=== PATIENT | female | born 2000 | race Two or more races ===

== ENCOUNTER 2020-06-18 17:37 | Emergency (ER) | payer MEDICAID, SELFPAY ==
--- NOTE | ~2020-06-18 | US_ITS ---
EXAMINATION: ULTRASOUND PELVIC TRANSABDOMINAL/TRANSVAGINAL WITH DOPPLER CLINICAL INFORMATION: Right lower quadrant pain. COMPARISON: None TECHNIQUE: Multiple 2-D grayscale and Doppler transabdominal/transpelvic ultrasound images were obtained. FINDINGS: Uterus: Anteverted/retroflexed measuring 9.8 x 5.3 x 5.8 cm with a volume of 158 mL. An echogenic IUD is seen extending to the level the fundus without significant abnormality. Minimal anechoic fluid is seen. The fundus. The endometrial stripe collectively measures up to 0.8 cm. Right ovary: 6.3 x 4.6 x 5.5 cm. A dominant anechoic cyst measures 5.4 x 4.0 x 4.2 cm. Color Doppler interrogation showed no internal vascular flow. Duplex Doppler interrogation of the ovary is normal. Left ovary: 3.2 x 1.9 x 2.1 cm with a volume of 7.0 cm. Small follicles are seen. Duplex Doppler interrogation showed normal vascular flow. US/US pelvic complete IMPRESSION: 1. Anteverted/retroflexed uterus with IUD in place. No significant abnormality. Minimal anechoic fluid within the endometrium demonstrates benign features and is likely physiologic. 2. Right ovarian cyst demonstrates benign features and is likely physiologic. If right lower quadrant pain persists or worsens, short-term repeat transvaginal pelvic ultrasound is recommended as clinically indicated to assess for change.
--- NOTE | ~2020-06-18 | US_ITS ---
EXAMINATION: ULTRASOUND PELVIC TRANSABDOMINAL/TRANSVAGINAL WITH DOPPLER CLINICAL INFORMATION: Right lower quadrant pain. COMPARISON: None TECHNIQUE: Multiple 2-D grayscale and Doppler transabdominal/transpelvic ultrasound images were obtained. FINDINGS: Uterus: Anteverted/retroflexed measuring 9.8 x 5.3 x 5.8 cm with a volume of 158 mL. An echogenic IUD is seen extending to the level the fundus without significant abnormality. Minimal anechoic fluid is seen. The fundus. The endometrial stripe collectively measures up to 0.8 cm. Right ovary: 6.3 x 4.6 x 5.5 cm. A dominant anechoic cyst measures 5.4 x 4.0 x 4.2 cm. Color Doppler interrogation showed no internal vascular flow. Duplex Doppler interrogation of the ovary is normal. Left ovary: 3.2 x 1.9 x 2.1 cm with a volume of 7.0 cm. Small follicles are seen. Duplex Doppler interrogation showed normal vascular flow. US/US transvaginal IMPRESSION: 1. Anteverted/retroflexed uterus with IUD in place. No significant abnormality. Minimal anechoic fluid within the endometrium demonstrates benign features and is likely physiologic. 2. Right ovarian cyst demonstrates benign features and is likely physiologic. If right lower quadrant pain persists or worsens, short-term repeat transvaginal pelvic ultrasound is recommended as clinically indicated to assess for change.
--- NOTE | ~2020-06-18 | US_ITS ---
EXAMINATION: ULTRASOUND PELVIC TRANSABDOMINAL/TRANSVAGINAL WITH DOPPLER CLINICAL INFORMATION: Right lower quadrant pain. COMPARISON: None TECHNIQUE: Multiple 2-D grayscale and Doppler transabdominal/transpelvic ultrasound images were obtained. FINDINGS: Uterus: Anteverted/retroflexed measuring 9.8 x 5.3 x 5.8 cm with a volume of 158 mL. An echogenic IUD is seen extending to the level the fundus without significant abnormality. Minimal anechoic fluid is seen. The fundus. The endometrial stripe collectively measures up to 0.8 cm. Right ovary: 6.3 x 4.6 x 5.5 cm. A dominant anechoic cyst measures 5.4 x 4.0 x 4.2 cm. Color Doppler interrogation showed no internal vascular flow. Duplex Doppler interrogation of the ovary is normal. Left ovary: 3.2 x 1.9 x 2.1 cm with a volume of 7.0 cm. Small follicles are seen. Duplex Doppler interrogation showed normal vascular flow. US/US pelvic ovarian doppler IMPRESSION: 1. Anteverted/retroflexed uterus with IUD in place. No significant abnormality. Minimal anechoic fluid within the endometrium demonstrates benign features and is likely physiologic. 2. Right ovarian cyst demonstrates benign features and is likely physiologic. If right lower quadrant pain persists or worsens, short-term repeat transvaginal pelvic ultrasound is recommended as clinically indicated to assess for change.
[2020-06-18 17:54] VITALS: BP 122/67; PULSE 62; RESP 16; TEMP 36.3; O2SAT 99; BMI 23.2
--- NOTE | 2020-06-18 19:50 | ED_ITS ---
HPI - Abdominal Pain General Chief Complaint: Abdominal Pain Stated Complaint: Abdominal pain Time Seen by Provider: 06/18/20 19:41 Source: patient Mode of arrival: ambulatory Limitations: no limitations History of Present Illness HPI narrative: Patient comes emergency room complaining of right lower quadrant pain. Patient states it started 3 weeks ago. Yesterday she went to see her OBGYN, states that her engineering design supervisor said there was some inflammation and ordered an ultrasound. Patient states she could not tolerate the pain today. Patient states a few years ago she had her appendix taken out. MD elicited complaint: abdominal pain Related Data Allergies Allergy/AdvReac Type Severity Reaction Status Date / Time animal dander [ANIMAL DANDER] Allergy Unknown SNEEZING Unverified 01/23/20 17:33 SEASONAL ALLERGIES Allergy Unknown SNEEZING Uncoded 01/23/20 17:33 Review of Systems Review of Systems Constitutional : No Weight loss, No Fever, No Chills, No Night Sweats, No Fatigue, No Malaise ENT/Mouth : No Hearing loss, No Ear Pain, No Nasal Congestion, No Sinus Pain, No Hoarseness, No sore throat, No Rhinorrhea, No Swallowing Difficulty Eyes: No Eye Pain, No Swelling, No Redness, No Foreign Body, No Discharge, No Vision Changes Cardiovascular : No Chest Pain, No SOB, No Dyspnea on Exertion, No Orthopnea, No Edema, No Palpitations Respiratory : No Cough, No Sputum, No Wheezing, No Smoke Exposure, No Dyspnea Gastrointestinal : 1 episode of vomiting today, No Diarrhea, No Constipation, complaining of 3 weeks of right lower quadrant pain, No Hematochezia, No Melena Genitourinary : no irregular bleeding, No Dysuria, No Urinary Frequency, No Hematuria, No Urinary Incontinence, No Urgency, No Flank Pain, No Urinary Flow Changes, No Hesitancy Musculoskeletal : No joint pain, No Myalgias, No Joint Swelling Skin : No Skin Lesions, No rash Neuro : No Weakness, No Numbness, No Paresthesias, No Loss of Consciousness, No Dizziness, No Headache Psych : No Anxiety/Panic, No Depression, No SI/HI/AH/VH, No Social Issues, Heme/Lymph: No Bruising, No Bleeding,No Lymphadenopathy Endocrine : No Polyuria, No Polydipsia, No Temperature Intolerance Physical Exam Vital Signs: Vital Signs: Last Vital Signs Temp 97.6 F 06/18/20 21:38 Pulse 66 06/18/20 21:38 Resp 16 06/18/20 21:38 BP 106/56 L 06/18/20 21:38 Pulse Ox 100 06/18/20 21:38 Body Mass Index 23.2 Appearance: Alert. Oriented X3. No acute distress. Well-appearing Eyes: Pupils equal, round and reactive to light. ENT: Pharynx normal. Neck: Normal inspection. Neck supple. No lymph nodes noted. No crepitus CVS: Normal heart rate and rhythm. Pulses normal. Normal S1 and S2 Respiratory: No respiratory distress. Breath sounds normal. No Wheezing. No rales Abdomen: Soft , [id number] tenderness to deep palpation over the right lower quadrant. No rigidity. No distention. Skin: Skin warm and dry. Normal skin color. Normal skin turgor. Extremities: No lower extremity edema. No lower extremity edema. No Lacerations. No Rash Neuro: Oriented X 3. No motor deficit. No sensory deficit. Moving all extermities. No slurred speech. Course Course Course Narrative: I discussed the ultrasound and labs with the patient, patient does have a right ovarian cyst. Patient instructed to follow-up with her OBGYN. At this time, patient is well appearing, talking on her phone. MDM - Abdominal Pain Lab Data Result diagrams: 06/18/20 20:07 06/18/20 20:07 Labs: Lab Results 06/18/20 06/18/20 06/18/20 Range/Units 20:07 20:07 20:15 WBC 6.9 (4.8-10.8) X10*3/uL RBC 3.77 L (4.20-5.50) X10*6/uL Hgb 11.9 L (12.0-16.0) g/dl Hct 35.4 L (37-47) % MCV 93.9 (80-98) fL MCH 31.6 (27.0-33.0) pg MCHC 33.6 (31.0-35.0) g/dl RDW 11.2 (11.0-16.0) % Plt Count 169 (160-400) X10*3/uL MPV 11.0 (9.4-12.3) fL Immature Gran % (Auto) 0.3 (0.0-0.4) % Neut % (Auto) 51.3 (45-73) % Lymph % (Auto) 39.3 (20-40) % [place] % (Auto) 7.5 (2-11) % Eos % (Auto) 1.3 (0-4) % Baso % (Auto) 0.3 (0-2) % Lymph # (Auto) 2.7 (1.2-4.9) X10*3/uL [place] # (Auto) 0.5 (0.1-1.2) X10*3/uL Eos # (Auto) 0.1 (0.0-0.4) X10*3/uL Baso # (Auto) 0.0 (0.0-0.2) X10*3/uL Abs Immat Gran (auto) 0.02 (0.00-0.03) X10*3/uL Absolute Neuts (auto) 3.6 (2.0-8.3) X10*3/uL Absolute Nucleated RBC 0.000 (0.0-0.012) X10*3/uL Nucleated RBC % (auto) 0.0 (0.0-0.2) /100WBC Sodium 141 (135-145) mmol/L Potassium 3.4 (3.3-5.1) mmol/L Chloride 108 (96-108) mmol/L Carbon Dioxide 29 (22-29) mmol/L Anion Gap 7 L (12-20) BUN 8 L (9-16) mg/dL Creatinine 0.73 (0.5-1.4) mg/dL Estim Creat Clear Calc 96.4 Estimated GFR > 60 Random Glucose 79 (60-115) mg/dL Calcium 8.4 (8.4-10.2) mg/dL Total Bilirubin 0.3 (0.0-1.0) mg/dL Direct Bilirubin 0.2 (0.0-0.5) mg/dL AST 14 (5-31) U/L ALT 8 (0-31) U/L Alkaline Phosphatase 66 (39-117) U/L Total Protein 6.1 L (6.5-8.0) g/dL Albumin 3.7 (3.5-5.0) g/dL Urine Color YELLOW Urine Appearance CLEAR Urine pH 6.5 (5.0-8.0) Ur Specific [place] 1.025 (1.005-1.025) Urine Protein NEG (NEG-TRACE) MG/DL Urine Glucose (UA) NEG (NEG) MG/DL Urine Ketones 5 (NEG) MG/DL Urine Blood NEG (NEG) Urine Nitrite NEG (NEG) Ur Leukocyte Esterase NEG (NEG) Urine Test NEGATIVE (NEGATIVE) Imaging Data Ovarian ultrasound: Radiologist's impression: FINDINGS: Uterus: Anteverted/retroflexed measuring 9.8 x 5.3 x 5.8 cm with a volume of 158 mL. An echogenic IUD is seen extending to the level the fundus without significant abnormality. Minimal anechoic fluid is seen. The fundus. The endometrial stripe collectively measures up to 0.8 cm. Right ovary: 6.3 x 4.6 x 5.5 cm. A dominant anechoic cyst measures 5.4 x 4.0 x 4.2 cm. Color Doppler interrogation showed no internal vascular flow. Duplex Doppler interrogation of the ovary is normal. Left ovary: 3.2 x 1.9 x 2.1 cm with a volume of 7.0 cm. Small follicles are seen. Duplex Doppler interrogation showed normal vascular flow. US/US transvaginal IMPRESSION: 1. Anteverted/retroflexed uterus with IUD in place. No significant abnormality. Minimal anechoic fluid within the endometrium demonstrates benign features and is likely physiologic. 2. Right ovarian cyst demonstrates benign features and is likely physiologic. If right lower quadrant pain persists or worsens, short-term repeat transvaginal pelvic ultrasound is recommended as clinically indicated to assess for change. Discharge Plan Discharge Clinical Impression: Ovarian cyst Patient Disposition: Home, Self-Care Instructions: Ovarian Cyst (ED) Additional Instructions: Please follow-up with your OBGYN. You may use Tylenol or ibuprofen for the pa in. Please follow-up with your primary care physician tomorrow. If you have any worsening or new symptoms, please return to the emergency room or call 911 Stand Alone Forms: Work/School Release [facility] Past Medical History Surgical History (Updated 06/18/20 @ 19:54 by Jocelynn Helton MD) History of appendectomy Social History Social History Alcohol intake: never Smoking Status: Never smoker Use of substances other than those prescribed or required for medical reasons: No Advance Directives: No Advance Directives Information Provided: Yes
[2020-06-18 20:14] LABS: MANUAL DIFF FLAG NO
[2020-06-18 20:16] LABS: Basophils Percent Auto 0.3 % (0-2); Eosinophils Absolute Auto 0.1 X10*3/uL (0.0-0.4); Eosinophils Percent Auto 1.3 % (0-4); Hematocrit 35.4 % (37-47); Hemoglobin 11.9 g/dl (12.0-16.0); Imm Gran Abs Auto 0.02 X10*3/uL (0.00-0.03); Imm Gran Pct Auto 0.3 % (0.0-0.4); Lymphocytes Absolute Auto 2.7 X10*3/uL (1.2-4.9); Lymphocytes Percent Auto 39.3 % (20-40); Mean Corpuscular HGB Conc 33.6 g/dl (31.0-35.0); Mean Corpuscular Hemoglobin 31.6 pg (27.0-33.0); Mean Corpuscular Volume 93.9 fL (80-98); Monocytes Absolute Auto 0.5 X10*3/uL (0.1-1.2); Monocytes Percent Auto 7.5 % (2-11); Neutrophils Absolute Auto 3.6 X10*3/uL (2.0-8.3); Neutrophils Percent Auto 51.3 % (45-73); Platelet Count 169 X10*3/uL (160-400); Red Blood Count 3.77 X10*6/uL (4.20-5.50); Red Cell Distribution Width 11.2 % (11.0-16.0); White Blood Count 6.9 X10*3/uL (4.8-10.8)
[2020-06-18 20:24] LABS: Glucose Urine UA NEG (NEG); Leukocyte Esterase Urine NEG (NEG); Nitrite Urine NEG (NEG); PH 6.5 (5.0-8.0); Specific Gravity - Urine 1.025 (1.005-1.025); Urine Blood NEG (NEG); Urine Ketones 5 MG/DL (NEG); Urine Protein NEG (NEG-TRACE)
[2020-06-18 20:26] LABS: Appearance Urine CLEAR; Color Urine YELLOW; UPreg QC Valid YES; Urine Pregnancy NEGATIVE (NEGATIVE)
[2020-06-18 20:48] LABS: Alanine Aminotransferase 8 U/L (0-31); Albumin Level 3.7 g/dL (3.5-5.0); Alkaline Phosphatase 66 U/L (39-117); Anion Gap 7 (12-20); Aspartate Amino Transferase 14 U/L (5-31); Bilirubin Direct 0.2 mg/dL (0.0-0.5); Bilirubin Total 0.3 mg/dL (0.0-1.0); Blood Urea Nitrogen 8 mg/dL (9-16); Calcium 8.4 mg/dL (8.4-10.2); Carbon Dioxide 29 mmol/L (22-29); Chloride 108 mmol/L (96-108); Creatinine Clr Calc Pharmacy 96.4; Estimated Glomerular Filt Rate > 60; Glucose Random 79 mg/dL (60-115); Potassium 3.4 mmol/L (3.3-5.1); Sodium 141 mmol/L (135-145); Total Protein 6.1 g/dL (6.5-8.0)
[2020-06-18 21:38] VITALS: BP 106/56; PULSE 66; RESP 16; TEMP 36.4; O2SAT 100
== END 2020-06-18 22:46 | disposition home or self-care (01) ==
PROVIDERS: Emergency Provider Emergency Medicine
DX: N83.201 Unspecified ovarian cyst, right side (principal); R10.31 Right lower quadrant pain; R10.2 Pelvic and perineal pain
CPT/HCPCS: 36415; 76830; 76856; 80048; 80076; 81003; 81025; 85025; 93975; 99284

== ENCOUNTER 2021-02-06 11:50 | Emergency (ER) | payer MEDICAID, SELFPAY ==
--- NOTE | ~2021-02-06 | US_ITS ---
EXAMINATION:US pelvic and transvaginal CLINICAL INFORMATION: Reason for Exam Left lower quadrant pain COMPARISON: No priors available. LMP: Patient has IUD FINDINGS: UTERUS: The uterus is anteverted. Size: 9.8 x 5.3 x 5.8 cm. Uterine mass: There is no uterine mass. Cervix: There is a fluid within the cervix endometrial canal. Endometrium: No ultrasound evidence of endometrial lesion. endometrial thickness measures 0.7 cm there is IUD in place. ADNEXA: Normal Right ovary: Normal in size. Left ovary: Normal in size. Doppler exam: Normal Doppler flow identified in both ovaries. FREE FLUID: Trace amount of free fluid. OTHER FINDINGS: None US/US pelvic and transvaginal IMPRESSION: There is free fluid within the endometrial cervical canal. Uncertain etiology. Exam otherwise normal. IUD in place.
[2021-02-06 12:00] VITALS: BP 117/70; PULSE 81; RESP 16; TEMP 36.9; O2SAT 99; BMI 22.4
[2021-02-06 12:19] LABS: Appearance Urine CLEAR; Color Urine YELLOW; Glucose Urine UA NEG (NEG); Leukocyte Esterase Urine NEG (NEG); Nitrite Urine NEG (NEG); Specific Gravity - Urine 1.025 (1.005-1.025); Urine Blood NEG (NEG); Urine Ketones NEG (NEG); Urine Protein TRACE MG/DL (NEG-TRACE)
[2021-02-06 12:20] LABS: UPreg QC Valid YES; Urine Pregnancy NEGATIVE (NEGATIVE)
--- NOTE | 2021-02-06 15:00 | ED_ITS ---
HPI - General Adult General Chief complaint: Abdominal Pain Stated complaint: abd pain Time Seen by Provider: 02/06/21 14:59 Source: patient Mode of arrival: ambulatory Limitations: no limitations History of Present Illness HPI narrative: 20-year-old female is here today for complaining of left lower quadrant pain. Last menses two months ago. Patient is trying to get . She has OBGYN provider at [facility]. Patient denies any nausea or vomiting. Reports no urinary symptoms. Denies any back pain. Patient denies diarrhea, constipation, abdominal cramping or bloating. Patient reports that the pain is specific to the left lower quadrant, no radiation Onset (ago): day(s) Location: abdomen (Left lower quadrant) Radiation: non-radiation Severity: mild Quality: aching Pain Consistency: intermittent Related Data Previous Rx's Medication Instructions Recorded ibuprofen 600 mg tablet 600 mg PO Q8H PRN #20 tab 02/06/21 ibuprofen 600 mg tablet 600 mg PO Q8H PRN #20 tab 02/06/21 Allergies Allergy/AdvReac Type Severity Reaction Status Date / Time animal dander [ANIMAL DANDER] Allergy Unknown SNEEZING Unverified 01/23/20 17:33 SEASONAL ALLERGIES Allergy Unknown SNEEZING Uncoded 01/23/20 17:33 Review of Systems Review of Systems: Constitutional : No Weight loss, No Fever, No Chills, No Night Sweats, No Fatigue, No Malaise ENT/Mouth : No Hearing loss, No Ear Pain, No Nasal Congestion, No Sinus Pain, No Hoarseness, No sore throat, No Rhinorrhea, No Swallowing Difficulty Eyes: No Eye Pain, No Swelling, No Redness, No Foreign Body, No Discharge, No Vision Changes Cardiovascular : No Chest Pain, No SOB, No Dyspnea on Exertion, No Orthopnea, No Edema, No Palpitations Respiratory : No Cough, No Sputum, No Wheezing, No Smoke Exposure, No Dyspnea Gastrointestinal : No Nausea, No Vomiting, No Diarrhea, No Constipation, left lower quadrant pain abdominal Pain, No Hematochezia, No Melena Genitourinary : no irregular bleeding, No Dysuria, No Urinary Frequency, No Hematuria, No Urinary Incontinence, No Urgency, No Flank Pain, No Urinary Flow Changes, No Hesitancy, Musculoskeletal : No joint pain, No Myalgias, No Joint Swelling Skin : No Skin Lesions, No rash Neuro : No Weakness, No Numbness, No Paresthesias, No Loss of Consciousness, No Dizziness, No Headache Yes all other systems are reviewed and are negative PMFSH Past Medical History Surgical History (Updated 06/18/20 @ 19:54 by Jocelynn Helton MD) History of appendectomy Social History Social History Alcohol intake: never Advance Directives: No Advance Directives Information Provided: Yes Patient : No Physical Exam Vital Signs: Vital Signs: Last Vital Signs Temp 98.4 F 02/06/21 12:00 Pulse 81 02/06/21 12:00 Resp 16 02/06/21 12:00 BP 117/70 02/06/21 12:00 Pulse Ox 99 02/06/21 12:00 Body Mass Index 22.4 Const: General: healthy appearing, no acute distress and well developed Nutritional Appearance: well nourished Orientation/consciousness: patient oriented x3 HENMT: Head: Yes normal to inspection, Yes normocephalic and Yes atraumatic Neck: Neck: Yes normal visual inspection, Yes full ROM and Yes trachea midline Thyroid: Thyroid normal Resp: Effort & Inspection: normal respiratory effort and able to speak in complete sentences Auscultation: clear to auscultation bilaterally Cardio: Rate: regular rate Rhythm: regular rhythm GI: Inspection: Yes normal to inspection and No distended Palpation (GI): Tenderness to palpation present (GI) in the LLQ and No hepatosplenomegaly present Auscultation: normal bowel sounds Skin: General skin exam: elasticity normal, turgor normal and dry skin Neuro: General: patient oriented x3 Course Course Course Narrative: 20-year-old female is here today for left lower quadrant pain. Patient reports that she had her period 2 weeks ago. History of cysts in the past. Patient denies any urinary symptoms. Denies any flank pain. Some nausea this morning but no vomiting. Patient reports that she was trying to get . Tried test last week and there were negative. Will do test, urinalysis. Reevaluation(s) Reevaluation #1: test negative urinalysis is clean. Will send patient for pelvic ultrasound, rule out cyst. However patient is in mid cycle Reevaluation #2: Ultrasound is negative for cysts or any acute findings. Trace free fluid within endometrial cervical. Patient denies any symptoms. She has a appointment with her OBGYN on a 7 patient was encouraged to follow-up. Medical Decision Making Lab Data Labs: Lab Results 02/06/21 02/06/21 Range/Units 12:11 12:11 Urine Color YELLOW Urine Appearance CLEAR Urine pH 6.0 (5.0-8.0) Ur Specific [place] 1.025 (1.005-1.025) Urine Protein TRACE (NEG-TRACE) MG/DL Urine Glucose (UA) NEG (NEG) MG/DL Urine Ketones NEG (NEG) MG/DL Urine Blood NEG (NEG) Urine Nitrite NEG (NEG) Ur Leukocyte Esterase NEG (NEG) Urine Test NEGATIVE (NEGATIVE) Imaging Data Pelvic ultrasound: Attestation: I personally reviewed and interpreted this imaging study as follows: Radiologist's impression: FINDINGS: UTERUS: The uterus is anteverted. Size: 9.8 x 5.3 x 5.8 cm. Uterine mass: There is no uterine mass. Cervix: There is a fluid within the cervix endometrial canal. Endometrium: No ultrasound evidence of endometrial lesion. endometrial thickness measures 0.7 cm there is IUD in place. ADNEXA: Normal Right ovary: Normal in size. Left ovary: Normal in size. Doppler exam: Normal Doppler flow identified in both ovaries. FREE FLUID: Trace amount of free fluid. OTHER FINDINGS: None US/US pelvic and transvaginal IMPRESSION: There is free fluid within the endometrial cervical canal. Uncertain etiology. Exam otherwise normal. ? IUD in place. Discharge Plan Discharge Clinical Impression: Abdominal pain Qualifiers: Abdominal location: left lower quadrant Qualified Code(s): R10.32 - Left lower quadrant pain Patient Disposition: Home, Self-Care Instructions: Abdominal Pain (ED) Additional Instructions: You were seen here today for left lower quadrant pain. Your ultrasound was negative for any acute findings. However please follow-up with your OBGYN. You may take ibuprofen for your pain. However please do not take ibuprofen when you are Prescriptions: New ibuprofen 600 mg tablet 600 mg PO Q8H PRN (Reason: pain) Qty: 20 RF: 0 ibuprofen 600 mg tablet 600 mg PO Q8H PRN (Reason: pain) Qty: 20 RF: 0 Interventions: ED Discharge Assessment Last Done: 02/06/21 17:31 Discharge Date/Time: 02/06/21 17:32
== END 2021-02-06 17:32 | disposition home or self-care (01) ==
PROVIDERS: Emergency Provider Emergency Medicine
DX: R10.32 Left lower quadrant pain (principal); Z79.899 Other long term (current) drug therapy
CPT/HCPCS: 76830; 76856; 81003; 81025; 99283; 99284

== ENCOUNTER 2021-05-06 14:13 | Emergency (ER) | payer MEDICAID, SELFPAY ==
--- NOTE | ~2021-05-06 | US_ITS ---
EXAMINATION: US OBSTETRICAL ULTRASOUND CLINICAL INFORMATION: 7 weeks , vaginal bleeding, rule out ectopic COMPARISON: None. LMP: 03/19/2021. Gestational age by maternal dates is 6 weeks 6 days. Estimated date of delivery by maternal dates is 12/24/2021. TECHNIQUE: Sonographic evaluation of the pelvis was performed transabdominally and transvaginally. FINDINGS: There is a single intrauterine gestational sac with visible yolk sac, embryo/fetus, and cardiac activity. There is no significant subchorionic hemorrhage or hematoma. HR: 123 beats per minute. CRL (crown rump length): 0.3 cm (6 weeks 0 days +/- 4 days). GISSEL (estimated date of delivery): 12/30/2021 +/- 4 days. MATERNAL ADNEXA: The right maternal ovary measures 3.3 x 1.9 x 2.1 cm cm. There is a right ovarian cyst measuring 1.8 x 1.9 x 1.8 cm, favored to represent a corpus luteal cyst. The left maternal ovary measures 2.7 x 1.3 x 1.8 and appears unremarkable. There is no significant maternal adnexal mass. No maternal pelvic ascites. US/US OB transvaginal IMPRESSION: 1. Single intrauterine gestation with ultrasound gestational age of 6 weeks 0 days +/- 4 days. 2. Estimated date of delivery is 12/30/2021 +/- 4 days. 3. No maternal adnexal mass or pelvic ascites.
--- NOTE | ~2021-05-06 | US_ITS ---
EXAMINATION: US OBSTETRICAL ULTRASOUND CLINICAL INFORMATION: 7 weeks , vaginal bleeding, rule out ectopic COMPARISON: None. LMP: 03/19/2021. Gestational age by maternal dates is 6 weeks 6 days. Estimated date of delivery by maternal dates is 12/24/2021. TECHNIQUE: Sonographic evaluation of the pelvis was performed transabdominally and transvaginally. FINDINGS: There is a single intrauterine gestational sac with visible yolk sac, embryo/fetus, and cardiac activity. There is no significant subchorionic hemorrhage or hematoma. HR: 123 beats per minute. CRL (crown rump length): 0.3 cm (6 weeks 0 days +/- 4 days). GISSEL (estimated date of delivery): 12/30/2021 +/- 4 days. MATERNAL ADNEXA: The right maternal ovary measures 3.3 x 1.9 x 2.1 cm cm. There is a right ovarian cyst measuring 1.8 x 1.9 x 1.8 cm, favored to represent a corpus luteal cyst. The left maternal ovary measures 2.7 x 1.3 x 1.8 and appears unremarkable. There is no significant maternal adnexal mass. No maternal pelvic ascites. US/US OB <= 14 weeks fetus IMPRESSION: 1. Single intrauterine gestation with ultrasound gestational age of 6 weeks 0 days +/- 4 days. 2. Estimated date of delivery is 12/30/2021 +/- 4 days. 3. No maternal adnexal mass or pelvic ascites.
[2021-05-06 14:45] VITALS: BP 115/67; PULSE 76; RESP 19; TEMP 36.6; O2SAT 99; BMI 22.6
[2021-05-06 20:25] VITALS: BP 120/65; PULSE 78; RESP 18; O2SAT 100
[2021-05-06 20:52] LABS: MANUAL DIFF FLAG NO
[2021-05-06 20:57] LABS: Appearance Urine CLEAR; Basophils Percent Auto 0.6 % (0-2); Color Urine YELLOW; Eosinophils Absolute Auto 0.1 X10*3/uL (0.0-0.4); Eosinophils Percent Auto 0.8 % (0-4); Glucose Urine UA NEG (NEG); Hematocrit 40.6 % (37.0-47.0); Hemoglobin 13.6 g/dl (12.0-16.0); Imm Gran Abs Auto 0.01 X10*3/uL (0.00-0.03); Imm Gran Pct Auto 0.2 % (0.0-0.4); Leukocyte Esterase Urine NEG (NEG); Lymphocytes Percent Auto 30.9 % (20-40); Mean Corpuscular HGB Conc 33.5 g/dl (31.0-35.0); Mean Corpuscular Hemoglobin 31.1 pg (27.0-33.0); Mean Corpuscular Volume 92.9 fL (80.0-98.0); Mean Platelet Volume 11.6 fL (9.4-12.3); Monocytes Absolute Auto 0.3 X10*3/uL (0.1-1.2); Monocytes Percent Auto 5.1 % (2-11); Neutrophils Absolute Auto 4.1 x10*3/uL (2.0-8.3); Neutrophils Percent Auto 62.4 % (45-73); Nitrite Urine NEG (NEG); Platelet Count 183 X10*3/uL (160-400); Red Blood Count 4.37 X10*6/uL (4.20-5.50); Red Cell Distribution Width 11.2 % (11.0-16.0); Specific Gravity - Urine 1.025 (1.005-1.025); UACC Culture Trigger NO; Urine Blood 3+ (NEG); Urine Ketones 15 MG/DL (NEG); Urine Protein NEG (NEG-TRACE); White Blood Count 6.5 X10*3/uL (4.8-10.8)
[2021-05-06 21:12] LABS: Alanine Aminotransferase 17 U/L (0-31); Albumin Level 4.6 g/dL (3.5-5.0); Alkaline Phosphatase 65 U/L (39-117); Anion Gap 10 (12-20); Aspartate Amino Transferase 16 U/L (5-31); Bilirubin Total 0.5 mg/dL (0.0-1.0); Blood Urea Nitrogen 9 mg/dL (9-16); Calcium 9.6 mg/dL (8.4-10.2); Carbon Dioxide 28 mmol/L (22-29); Chloride 103 mmol/L (96-108); Creatinine Clr Calc Pharmacy 98.3; Estimated Glomerular Filt Rate > 60; Glucose Random 91 mg/dL (60-115); Potassium 3.7 mmol/L (3.3-5.1); Sodium 137 mmol/L (135-145); Total Protein 7.6 g/dL (6.5-8.0)
[2021-05-06 21:14] LABS: Bacteria Urine 1+ /LPF; RBC Urine 0-2 /HPF (0); Squamous Epithelial Cell Urine 1+ /LPF; WBC Urine 0 /HPF (0-4)
[2021-05-06 21:17] LABS: HCG Quantitative 4599 mIU/mL
--- NOTE | 2021-05-06 21:46 | ED.FEMALEGU ---
HPI - Female Genitourinary General Chief complaint: Vaginal Bleeding Stated complaint: 6 WKS PREG HEAVY VAGINAL BLEEDING Time Seen by Provider: 05/06/21 21:12 Source: patient Mode of arrival: ambulatory Limitations: no limitations History of Present Illness HPI Narrative: 21-year-old female who presents emergency department for evaluation of vaginal bleeding. The patient is a G2, P1 LMP 03/19/2021, 7 weeks . Patient states that she has been bleeding for 3 days. She describes the amount of bleeding is small. She states that today she used to OB pads but did not soaked through these pads. She states that she has been having a cramping sensation in the suprapubic and left side of her pelvis. She was seen at [facility] on Monday (3 days prior). Patient states they did an ultrasound and she believes that this on intrauterine however we have not been able to get this record from [facility]. She states that her blood type is O positive. Related Data Previous Rx's Medication Instructions Recorded ibuprofen 600 mg tablet 600 mg PO Q8H PRN #20 tab 02/06/21 ibuprofen 600 mg tablet 600 mg PO Q8H PRN #20 tab 02/06/21 Allergies Allergy/AdvReac Type Severity Reaction Status Date / Time animal dander [ANIMAL DANDER] Allergy Unknown SNEEZING Verified 05/06/21 21:58 SEASONAL ALLERGIES Allergy Unknown SNEEZING Uncoded 01/23/20 17:33 Review of Systems Review of Systems: Yes all other systems are reviewed and are negative [facility] Past Medical History [facility] Narrative: Past medical history: None. Past surgical history: Appendectomy. Social history: She denies tobacco, alcohol and drug use. Medical History (Updated 05/07/21 @ 00:33 by Joshua Hammer MD) Asthma Surgical History (Updated 06/18/20 @ 19:54 by Jocelynn Helton MD) History of appendectomy Social History Social History Alcohol intake: never Advance Directives: No Advance Directives Information Provided: No Patient : Yes Physical Exam Vital Signs: Vital Signs: Last Vital Signs Temp 98.0 F 05/06/21 22:20 Pulse 83 05/06/21 23:24 Resp 16 05/06/21 23:24 BP 109/61 05/06/21 23:24 Pulse Ox 100 05/06/21 23:24 BMI result Body Mass Index 22.6 Const: General: cooperative and no acute distress Orientation/consciousness: oriented to person and oriented to place Limitations: no limitations HENMT: Head: Yes normal to inspection, Yes normocephalic and Yes atraumatic Ears: external ears normal General nose exam: Normal external nose present Face and sinus: Yes normal facial exam Mouth: Normal oral and palatal mucosa present Throat: Yes posterior oropharynx normal Eyes: General: appearance normal, both eyes and all related structures Pupils: Equal, round and reactive pupils present Neck: Neck: Yes normal visual inspection, Yes no lymphadenopathy, Yes trachea midline and Yes supple Chest: Chest palpation & inspection: normal inspection of the chest and normal palpation of entire chest wall Resp: Effort & Inspection: normal respiratory effort and able to speak in complete sentences Auscultation: clear to auscultation bilaterally Cardio: Rate: regular rate Rhythm: regular rhythm Heart sounds: S1 normal heart sound present, S2 normal heart sound present and no murmurs GI: Inspection: Yes normal to inspection Palpation (GI): Soft to palpation, Tenderness to palpation present (GI) suprapubicly and no guarding Auscultation: normal bowel sounds : General: Yes no CVA tenderness Back/Spine/Pelvis: Back: no CVA tenderness Skin: General skin exam: no rashes or lesions noted Neuro: General: oriented to person and oriented to place Cranial nerves: Yes CN's II-XII intact bilaterally and Yes Equal, round and reactive pupils present Cognition (Neuro): normal cognition Motor exam (neuro): 5/5 motor strength present throughout Extrem: General: Yes normal to inspection Psych: Appearance: grossly normal Speech and movement: Normal speech and movement present Affect: normal affect Attitude: cooperative Thought process: Normal thought process present Thought content: Normal thought content present Course Course Course Narrative: 21-year-old female , LMP 03/19/2021, 7 weeks who presents emergency department for evaluation of abdominal pain and vaginal bleeding. Patient was seen 3 days earlier at [facility] and did have an ultrasound however the patient is unclear if they saw an intrauterine . We are unable to obtain this record at this time. On her examination she does have suprapubic tenderness. Laboratory evaluation revealed a normal CBC and CMP. The patient's quantitative beta-hCG was 4599. The patient knows that her blood type is O-positive. I am concerned that the patient may have an ectopic therefore I ordered a OB less than 14 week ultrasound and a transvaginal ultrasound. 0027: The radiology ultrasound impression was as follows: 1. Single intrauterine gestation with ultrasound gestational age of? 6 weeks 0 days +/- 4 days. 2. Estimated date of delivery is 12/30/2021 +/- 4 days. 3. No maternal adnexal mass or pelvic ascites. I did discuss this finding with the patient. The patient states that she is being followed by our program dir and will deliver at [facility]. The patient was instructed to contact our program dir service tomorrow to schedule appointment for early next week to get a repeat quantitative beta HCG. She was given printed and verbal instructions on threatened miscarriages. She does have vitamins at home. MDM - Female Genitourinary Lab Data Result diagrams: 05/06/21 20:46 05/06/21 20:46 Labs: Lab Results 05/06/21 05/06/21 05/06/21 Range/Units 20:46 20:46 20:46 WBC 6.5 (4.8-10.8) X10*3/uL RBC 4.37 (4.20-5.50) X10*6/uL Hgb 13.6 (12.0-16.0) g/dl Hct 40.6 (37.0-47.0) % MCV 92.9 (80.0-98.0) fL MCH 31.1 (27.0-33.0) pg MCHC 33.5 (31.0-35.0) g/dl RDW 11.2 (11.0-16.0) % Plt Count 183 (160-400) X10*3/uL MPV 11.6 (9.4-12.3) fL Immature Gran % (Auto) 0.2 (0.0-0.4) % Neut % (Auto) 62.4 (45-73) % Lymph % (Auto) 30.9 (20-40) % [place] % (Auto) 5.1 (2-11) % Eos % (Auto) 0.8 (0-4) % Baso % (Auto) 0.6 (0-2) % Lymph # (Auto) 2.0 (1.2-4.9) X10*3/uL [place] # (Auto) 0.3 (0.1-1.2) X10*3/uL Eos # (Auto) 0.1 (0.0-0.4) X10*3/uL Baso # (Auto) 0.0 (0.0-0.2) X10*3/uL Abs Immat Gran (auto) 0.01 (0.00-0.03) X10*3/uL Absolute Neuts (auto) 4.1 (2.0-8.3) x10*3/uL Absolute Nucleated RBC 0.000 (0.0-0.012) X10*3/uL Nucleated RBC % (auto) 0.0 (0.0-0.2) /100WBC Sodium 137 (135-145) mmol/L Potassium 3.7 (3.3-5.1) mmol/L Chloride 103 (96-108) mmol/L Carbon Dioxide 28 (22-29) mmol/L Anion Gap 10 L (12-20) BUN 9 (9-16) mg/dL Creatinine 0.71 (0.5-1.4) mg/dL Estim Creat Clear Calc 98.3 Estimated GFR > 60 Random Glucose 91 (60-115) mg/dL Calcium 9.6 D (8.4-10.2) mg/dL Total Bilirubin 0.5 (0.0-1.0) mg/dL AST 16 (5-31) U/L ALT 17 (0-31) U/L Alkaline Phosphatase 65 (39-117) U/L Total Protein 7.6 D (6.5-8.0) g/dL Albumin 4.6 D (3.5-5.0) g/dL Beta HCG, Quant 4599 mIU/mL Urine Color Urine Appearance Urine pH (5.0-8.0) Ur Specific [place] (1.005-1.025) Urine Protein (NEG-TRACE) MG/DL Urine Glucose (UA) (NEG) MG/DL Urine Ketones (NEG) MG/DL Urine Blood (NEG) Urine Nitrite (NEG) Ur Leukocyte Esterase (NEG) Urine RBC (0) /HPF Urine WBC (0-4) /HPF Ur Squamous Epith Cells /LPF Urine Bacteria /LPF 05/06/ Range/Units 20:46 WBC (4.8-10.8) X10*3/uL RBC (4.20-5.50) X10*6/uL Hgb (12.0-16.0) g/dl Hct (37.0-47.0) % MCV (80.0-98.0) fL MCH (27.0-33.0) pg MCHC (31.0-35.0) g/dl RDW (11.0-16.0) % Plt Count (160-400) X10*3/uL MPV (9.4-12.3) fL Immature Gran % (Auto) (0.0-0.4) % Neut % (Auto) (45-73) % Lymph % (Auto) (20-40) % [place] % (Auto) (2-11) % Eos % (Auto) (0-4) % Baso % (Auto) (0-2) % Lymph # (Auto) (1.2-4.9) X10*3/uL [place] # (Auto) (0.1-1.2) X10*3/uL Eos # (Auto) (0.0-0.4) X10*3/uL Baso # (Auto) (0.0-0.2) X10*3/uL Abs Immat Gran (auto) (0.00-0.03) X10*3/uL Absolute Neuts (auto) (2.0-8.3) x10*3/uL Absolute Nucleated RBC (0.0-0.012) X10*3/uL Nucleated RBC % (auto) (0.0-0.2) /100WBC Sodium (135-145) mmol/L Potassium (3.3-5.1) mmol/L Chloride (96-108) mmol/L Carbon Dioxide (22-29) mmol/L Anion Gap (12-20) BUN (9-16) mg/dL Creatinine (0.5-1.4) mg/dL Estim Creat Clear Calc Estimated GFR Random Glucose (60-115) mg/dL Calcium (8.4-10.2) mg/dL Total Bilirubin (0.0-1.0) mg/dL AST (5-31) U/L ALT (0-31) U/L Alkaline Phosphatase (39-117) U/L Total Protein (6.5-8.0) g/dL Albumin (3.5-5.0) g/dL Beta HCG, Quant mIU/mL Urine Color YELLOW Urine Appearance CLEAR Urine pH 6.0 (5.0-8.0) Ur Specific [place] 1.025 (1.005-1.025) Urine Protein NEG (NEG-TRACE) MG/DL Urine Glucose (UA) NEG (NEG) MG/DL Urine Ketones 15 (NEG) MG/DL Urine Blood 3+ H (NEG) Urine Nitrite NEG (NEG) Ur Leukocyte Esterase NEG (NEG) Urine RBC 0-2 (0) /HPF Urine WBC 0 (0-4) /HPF Ur Squamous Epith Cells 1+ /LPF Urine Bacteria 1+ /LPF Discharge Plan Discharge Clinical Impression: Vaginal bleeding affecting early , Intrauterine Patient Disposition: Home, Self-Care Instructions: Threatened Miscarriage (ED) Additional Instructions: Your quantitative beta-hCG today was 4599. You will need this blood test repeated in 4-7 days by your OBGYN provider. Call our OBGYN provider office tomorrow to schedule appointment for early next week to get re-evaluated need to get the repeat quantitative beta HCG. Your ultrasound today was interpreted by the radiologist as follows: 1. Single intrauterine gestation with ultrasound gestational age of? 6 weeks 0 days +/- 4 days. 2. Estimated date of delivery is 12/30/2021 +/- 4 days. 3. No maternal adnexal mass or pelvic ascites. This is encouraging, you have a baby that is in the uterus and the baby size (6 weeks and 6 days) matches the size expected for your last menstrual period (7 weeks). Continue taking vitamins. Follow the threatened miscarriage instructions. Follow-up with your our OBGYN providers office in 4-7 days. Please return to the emergency department if your symptoms get worse or if you develop any symptoms that are concerning to you. Prescriptions: No Action ibuprofen 600 mg tablet 600 mg PO Q8H PRN (Reason: pain) Qty: 20 RF: 0 ibuprofen 600 mg tablet 600 mg PO Q8H PRN (Reason: pain) Qty: 20 RF: 0 Referrals: Ike Soni MD [Physician] - 1 week
[2021-05-06] MEDS: 0.9 % Sodium Chloride 1,000 ML 999 ML IV (21:59)
[2021-05-06 22:20] VITALS: BP 112/61; PULSE 83; RESP 18; TEMP 36.7; O2SAT 100
[2021-05-06 23:24] VITALS: BP 109/61; PULSE 83; RESP 16; O2SAT 100
== END 2021-05-07 00:48 | disposition home or self-care (01) ==
PROVIDERS: Emergency Provider Emergency Medicine Emergency Medical Services
DX: O20.9 Hemorrhage in early pregnancy, unspecified (principal); Z3A.01 Less than 8 weeks gestation of pregnancy
CPT/HCPCS: 36415; 76801; 76817; 80053; 81001; 81003; 84702; 85025; 96360; 99284

== ENCOUNTER → 2021-05-12 11:10 | Outpatient (BNVA) | payer MEDICAID, SELFPAY | PROVIDERS: Visit Provider Obstetrics & Gynecology | DX: O20.0 Threatened abortion (principal) | CPT/HCPCS: 99202 ==

== ENCOUNTER 2021-05-12 12:31 | Outpatient (REF) | payer MEDICAID, SELFPAY ==
[2021-05-12 16:26] LABS: CT PCR NOT DETECTED (Not Detect.); NG PCR NOT DETECTED (Not Detect.)
== END 2021-05-12 12:32 | disposition home or self-care (01) ==
LOC: HO.LAB 12:31
PROVIDERS: PCP Obstetrics & Gynecology; Visit Provider Obstetrics & Gynecology
DX: O20.0 Threatened abortion (principal); Z67.40 Type O blood, Rh positive
CPT/HCPCS: 86850; 86900; 86901; 87491; 87591

== ENCOUNTER 2021-05-14 13:51 | Outpatient (REF) | payer MEDICAID, SELFPAY ==
--- NOTE | ~2021-05-14 | US_ITS ---
EXAMINATION: OBSTETRICAL ULTRASOUND, FIRST TRIMESTER HISTORY: 21-year-old at the 8.0 weeks of gestation Vaginal bleeding LMP: 03/19/2021 COMPARISON: 05/06/2021 TECHNIQUE: Real time transabdominal imaging with color and M-mode Doppler. Transvaginal ultrasound was performed using an endovaginal probe. FINDINGS: A single, live IUP CRL of 5.9 mm c/w 6.3wks is noted. Heart Rate: 170 beats per minute. Both maternal ovaries are seen and appear normal. GESTATIONAL AGE: 1. GA from LMP: 8.0 wks 2. GA from AUA: 6.3 wks ESTIMATED DATE OF DELIVERY: 1. GISSEL from LMP: 12/24/2021 2. GISSEL from AUA: 01/04/2022 US/US OB pelvic and transvaginal IMPRESSION: 1. A single live IUP 2. Size less than dates, the CRL corresponds to 6.3 weeks. Compared to the prior exam, there has not been any growth in CRL. 3. Normal ovaries Discussion: I reviewed today's findings and informed her that the has not grown in last 2 weeks. She denies cramping but small amount of dark blood was seen on the vaginal probe and reports having had vaginal spotting for last few days. I recommended a serial beta hCG and gave her MAB warnings. She is to start by your office today and have a repeat visit on Monday. Thank you very much for this referral. Total time 20 minutes. The time spent was devoted to counseling the patient about the disease and diagnosis, coordinating care including reviewing her records, pertinent lab data and studies, as well as discussing diagnostic evaluation and workup, plan therapeutic interventions and future disposition of care. This includes any additional research needed to obtain further information in formulating the plan of care of this patient. This note was generated with a voice recognition program. Please excuse any errors which may have been overlooked during my review of this note. Sometimes these errors may affect the content or meaning of a given sentence.
== END 2021-05-14 13:52 | disposition home or self-care (01) ==
LOC: HO.US 13:51
PROVIDERS: Visit Provider Obstetrics & Gynecology
DX: O20.0 Threatened abortion (principal); O26.859 Spotting complicating pregnancy, unspecified trimester
CPT/HCPCS: 76801; 76817; 99212

== ENCOUNTER 2021-05-17 10:13 | Outpatient (REF) | payer MEDICAID, SELFPAY ==
--- NOTE | ~2021-05-17 | US_ITS ---
EXAMINATION: US OBSTETRICAL ULTRASOUND CLINICAL INFORMATION: Threatened COMPARISON: Previous exams 05/06/2021 and 05/14/2021. LMP: 03/19/2021. Gestational age by maternal dates is 8 weeks 3 days. Estimated date of delivery by maternal dates is 12/24/2021. TECHNIQUE: Transabdominal and transvaginal first trimester OB ultrasound FINDINGS: The uterus is anteverted and measures 8.6 x 3.2 x 5.7 cm in dimension. There is an intrauterine gestational sac. [place]-rump length measures 1 cm suggesting gestational age of 6 weeks 6 days with estimated date of delivery of 01/04/2022. There is a low heart rate of 87 bpm. There is a yolk sac. The cervix is normal appearing. The right maternal ovary is normal and measures 3 x 1.8 x 2 cm. There is a 1.4 x 1 x 0.8 cm right ovarian cyst. The left ovary is not seen. There is no fluid in the pelvis. US/US OB <= 14 weeks fetus IMPRESSION: Single live intrauterine . There is interval growth compared to most recent exam 05/14/2021 however this is still decreased compared to earliest exam 05/06/2021. There is a low heart rate of 87 bpm.
[2021-05-17 11:36] LABS: HCG Quantitative 7761 mIU/mL
== END 2021-05-17 10:14 | disposition home or self-care (01) ==
LOC: HO.US 10:13
PROVIDERS: Absent Provider Obstetrics & Gynecology; Visit Provider Advanced Practice Midwife
DX: O20.0 Threatened abortion (principal)
CPT/HCPCS: 36415; 76801; 84702; 99212

== ENCOUNTER 2021-05-25 | Outpatient (REF) | payer MEDICAID, SELFPAY | END 2021-05-25 00:01 | LOC: CF | PROVIDERS: Visit Provider Obstetrics & Gynecology | DX: O03.9 Complete or unspecified spontaneous abortion without complication (principal) | CPT/HCPCS: 99212 ==

== ENCOUNTER → 2021-06-10 13:51 | Outpatient (BNVA) | payer MEDICAID, SELFPAY | PROVIDERS: Visit Provider Obstetrics & Gynecology ==

== ENCOUNTER → 2021-10-19 13:23 | Outpatient (BNVA) | payer MEDICAID, SELFPAY | PROVIDERS: Visit Provider Advanced Practice Midwife | DX: O09.291 Supervision of pregnancy with other poor reproductive or obstetric history, first trimester (principal); O99.511 Diseases of the respiratory system complicating pregnancy, first trimester; J45.909 Unspecified asthma, uncomplicated; Z3A.00 Weeks of gestation of pregnancy not specified | CPT/HCPCS: 99212 ==

== ENCOUNTER 2021-11-17 15:27 | Outpatient (REF) | payer MEDICAID, SELFPAY ==
[2021-11-17 16:14] LABS: Appearance Urine CLEAR; Color Urine YELLOW; Glucose Urine UA NEG (NEG); Leukocyte Esterase Urine NEG (NEG); Nitrite Urine NEG (NEG); Specific Gravity - Urine 1.025 (1.005-1.025); Urine Blood NEG (NEG); Urine Ketones 5 MG/DL (NEG); Urine Protein NEG (NEG-TRACE)
== END 2021-11-17 15:28 | disposition home or self-care (01) ==
LOC: HO.LAB 15:27
PROVIDERS: Visit Provider Advanced Practice Midwife
DX: O26.891 Other specified pregnancy related conditions, first trimester (principal); R30.0 Dysuria; Z3A.00 Weeks of gestation of pregnancy not specified
CPT/HCPCS: 81003

== ENCOUNTER → 2021-11-24 09:32 | Outpatient (BNVA) | payer MEDICAID, SELFPAY | PROVIDERS: Visit Provider Advanced Practice Midwife | DX: Z32.01 Encounter for pregnancy test, result positive (principal); Z3A.10 10 weeks gestation of pregnancy | CPT/HCPCS: 99212 ==

== ENCOUNTER 2021-11-26 06:39 | Outpatient (REF) | payer MEDICAID, SELFPAY ==
--- NOTE | ~2021-11-26 | US_ITS ---
EXAMINATION: OBSTETRICAL ULTRASOUND, FIRST TRIMESTER HISTORY: 21-year-old at 11.1 weeks of gestation NT screening COMPARISON: 05/17/2021 TECHNIQUE: Real time transabdominal imaging with color and M-mode Doppler. FINDINGS: A single, live IUP CRL of 44.9 mm c/w 11.3wks is noted. Heart Rate: 174 beats per minute. Normal yolk sac seen. NT was 0.8.mm. NB Present The embryo appears sonographically wnl for this GA. Left ovary is within normal limits. The right was the not visualized. GESTATIONAL AGE: 1. Established GA: 11.1 wks 2. GA from AUA: 11.3 wks ESTIMATED DATE OF DELIVERY: 1. Established GISSEL: 06/16/2022 2. GISSEL from A: 06/14/2022 US/US OB 1T nuc measure IMPRESSION: 1. A single live IUP 2. Size equals dates 3. NT of 0.8 mm MFM Consultation: I reviewed the ultrasound findings along with significance of NT measurement. The NT of less than 3mm is generally reassuring. However, the sensitivity for T21 detection is only 60%. I reviewed the availability of serum aneuploidy screening which includes cell-free DNA and placental protein based tests. I discussed the sensitivity, false-positive rate, and other limitations associated with each test. I also reviewed the availability of invasive diagnostic tests that are associated small but definite risk of miscarriage. We also reviewed the differences between screening tests and diagnostic tests. After our discussion, she opted for the First trimester screening that is based on cell-free DNA or non-invasive testing (NIPT). The result will be faxed to your office in approximately 7 days. A follow up at 18 weeks for survey has been scheduled. Thank you very much for this referral. Total time 20 minutes. The time spent was devoted to counseling the patient about the disease and diagnosis, coordinating care including reviewing her records, pertinent lab data and studies, as well as discussing diagnostic evaluation and workup, plan therapeutic interventions and future disposition of care. This includes any additional research needed to obtain further information in formulating the plan of care of this patient. This note was generated with a voice recognition program. Please excuse any errors which may have been overlooked during my review of this note. Sometimes these errors may affect the content or meaning of a given sentence.
[2021-11-26 08:32] LABS: Amphetamine Screen Urine Not Detected (Not Detect); Barbiturates, Urine Not Detected (Not Detect); Benzodiazepines Screen Urine Not Detected (Not Detect); Cannabinoid Screen Urine Not Detected (Not Detect); Cocaine Screen Urine Not Detected (Not Detect); Fentanyl, urine Not Detected (Not Detect); Opiate Screen Urine Not Detected (Not Detect); Phencyclidine Screen Urine Not Detected (Not Detect)
[2021-11-26 08:44] LABS: Hematocrit 34.2 % (37.0-47.0); Hemoglobin 11.3 g/dl (12.0-16.0); Mean Corpuscular Hemoglobin 30.6 pg (27.0-33.0); Mean Corpuscular Volume 92.7 fL (80.0-98.0); Mean Platelet Volume 11.7 fL (9.4-12.3); Platelet Count 160 X10*3/uL (160-400); Red Blood Count 3.69 X10*6/uL (4.20-5.50); Red Cell Distribution Width 11.5 % (11.0-16.0); White Blood Count 5.9 X10*3/uL (4.8-10.8)
[2021-11-26 08:57] LABS: Glucose 1 Hour PP 50gm Dose 66 mg/dL (60-140)
[2021-11-26 09:22] LABS: Syphilis Screen Nonreactive (Nonreactive)
[2021-11-26 09:29] LABS: HBsAGNum1 0.23 S/CO (0.00-0.99); HIV AB/AG Nonreactive (Nonreactive); HIV Num 1 0.09 S/CO (0.00-0.99); Hepatitis B Surface Antigen Negative (Negative); ~HepC Num1 0.11 S/CO (0.00-0.79); ~Hepatitis C Antibody Nonreactive (Nonreactive)
[2021-11-29 17:12] LABS: Rubella IgG Antibody 1.41 Index
== END 2021-11-26 06:40 | disposition home or self-care (01) ==
LOC: HO.US 06:39
PROVIDERS: Visit Provider Advanced Practice Midwife
DX: O09.291 Supervision of pregnancy with other poor reproductive or obstetric history, first trimester (principal); Z36.3 Encounter for antenatal screening for malformations; Z3A.11 11 weeks gestation of pregnancy
CPT/HCPCS: 76813; 80307; 85027; 86762; 86780; 86787; 86803; 86850; 86900; 87086; 87340; 87389

== ENCOUNTER 2021-12-16 15:52 | Outpatient (REF) | payer MEDICAID, SELFPAY ==
[2021-12-17 03:26] LABS: CT PCR NOT DETECTED (Not Detect.); NG PCR NOT DETECTED (Not Detect.)
[2021-12-17 13:26] LABS: BV Int Neg Control Negative (Negative); BV Int Pos Control Positive (Positive)
== END 2021-12-16 15:53 | disposition home or self-care (01) ==
LOC: HO.LAB 15:52
PROVIDERS: Visit Provider Advanced Practice Midwife
DX: O35.9XX0 Maternal care for (suspected) fetal abnormality and damage, unspecified, not applicable or unspecified (principal); Z3A.14 14 weeks gestation of pregnancy
CPT/HCPCS: 87480; 87491; 87510; 87591; 87660; 88142; 99212

== ENCOUNTER → 2022-01-13 14:53 | Outpatient (BNVA) | payer MEDICAID, SELFPAY | PROVIDERS: Visit Provider Advanced Practice Midwife | DX: O99.512 Diseases of the respiratory system complicating pregnancy, second trimester (principal); J45.909 Unspecified asthma, uncomplicated; Z3A.18 18 weeks gestation of pregnancy | CPT/HCPCS: 99212 ==

== ENCOUNTER → 2022-02-15 09:54 | Outpatient (BNVA) | payer MEDICAID, SELFPAY | PROVIDERS: Visit Provider Advanced Practice Midwife | DX: Z34.82 Encounter for supervision of other normal pregnancy, second trimester (principal); Z3A.22 22 weeks gestation of pregnancy | CPT/HCPCS: 99212 ==

== ENCOUNTER → 2022-03-15 11:32 | Outpatient (BNVA) | payer MEDICAID, SELFPAY | PROVIDERS: Visit Provider Advanced Practice Midwife | DX: Z34.82 Encounter for supervision of other normal pregnancy, second trimester (principal); Z3A.26 26 weeks gestation of pregnancy | CPT/HCPCS: 99212 ==

== ENCOUNTER 2022-03-28 13:23 | Outpatient (REF) | payer MEDICAID, SELFPAY ==
[2022-03-28 15:54] LABS: Hematocrit 33.5 % (37.0-47.0); Hemoglobin 11.2 g/dl (12.0-16.0); Mean Corpuscular HGB Conc 33.4 g/dl (31.0-35.0); Mean Corpuscular Hemoglobin 31.6 pg (27.0-33.0); Mean Corpuscular Volume 94.6 fL (80.0-98.0); Platelet Count 154 X10*3/uL (160-400); Red Blood Count 3.54 X10*6/uL (4.20-5.50); Red Cell Distribution Width 11.9 % (11.0-16.0)
[2022-03-28 16:26] LABS: Glucose 1 Hour PP 50gm Dose 141 mg/dL (60-140)
[2022-03-30 04:21] LABS: Syphilis Screen Nonreactive (Nonreactive)
== END 2022-03-28 13:24 | disposition home or self-care (01) ==
LOC: HO.LAB 13:23
PROVIDERS: Visit Provider Advanced Practice Midwife
DX: O26.843 Uterine size-date discrepancy, third trimester (principal); Z20.2 Contact with and (suspected) exposure to infections with a predominantly sexual mode of transmission
CPT/HCPCS: 36415; 81003; 82950; 85027; 86780; 99212

== ENCOUNTER 2022-04-08 06:20 | Outpatient (REF) | payer MEDICAID, SELFPAY ==
[2022-04-08 08:27] LABS: Glucose Fasting 72 mg/dL (60-99)
[2022-04-08 08:53] LABS: Glucose 1 Hour 102 mg/dL
[2022-04-08 09:18] LABS: Glucose 2 Hour 94 mg/dL
[2022-04-08 13:32] LABS: Glucose 3 Hour 80 mg/dL
== END 2022-04-08 06:21 | disposition home or self-care (01) ==
LOC: HO.LAB 06:20
PROVIDERS: Visit Provider Advanced Practice Midwife
DX: O99.810 Abnormal glucose complicating pregnancy (principal)
CPT/HCPCS: 36415; 82951

== ENCOUNTER → 2022-04-11 14:04 | Outpatient (BNVA) | payer MEDICAID, SELFPAY | PROVIDERS: Visit Provider Advanced Practice Midwife | DX: O09.293 Supervision of pregnancy with other poor reproductive or obstetric history, third trimester (principal); Z3A.30 30 weeks gestation of pregnancy | CPT/HCPCS: 99212 ==

== ENCOUNTER → 2022-04-25 14:53 | Outpatient (BNVA) | payer MEDICAID, SELFPAY | PROVIDERS: Visit Provider Advanced Practice Midwife | DX: O36.5930 Maternal care for other known or suspected poor fetal growth, third trimester, not applicable or unspecified (principal); Z23 Encounter for immunization; Z3A.32 32 weeks gestation of pregnancy | CPT/HCPCS: 90471; 90715; 99212 ==

== ENCOUNTER → 2022-05-13 12:40 | Outpatient (BNVA) | payer MEDICAID, SELFPAY | PROVIDERS: Visit Provider Advanced Practice Midwife | DX: O26.843 Uterine size-date discrepancy, third trimester (principal); O35.9XX0 Maternal care for (suspected) fetal abnormality and damage, unspecified, not applicable or unspecified; Z3A.35 35 weeks gestation of pregnancy | CPT/HCPCS: 99212 ==

== ENCOUNTER 2022-05-20 09:49 | Outpatient (REF) | payer MEDICAID, SELFPAY ==
[2022-05-20 12:49] LABS: Creatinine Urine 176.93 mg/dL; Protein/Creatinine Ratio, Ur 0.11 (<0.2); Total Protein Urine Random 20 mg/dL (<12)
[2022-05-20 14:15] LABS: CT PCR NOT DETECTED (Not Detect.); NG PCR NOT DETECTED (Not Detect.)
[2022-05-21 11:58] LABS: Allergic to Penicillin? NO
== END 2022-05-20 09:50 | disposition home or self-care (01) ==
LOC: HO.LAB 09:49
PROVIDERS: Visit Provider Advanced Practice Midwife
DX: O35.9XX0 Maternal care for (suspected) fetal abnormality and damage, unspecified, not applicable or unspecified (principal); O47.03 False labor before 37 completed weeks of gestation, third trimester; O26.843 Uterine size-date discrepancy, third trimester; Z3A.36 36 weeks gestation of pregnancy
CPT/HCPCS: 0353U; 81003; 84156; 87150; 99212

== ENCOUNTER 2022-05-20 10:51 | Outpatient (REF) | payer MEDICAID, SELFPAY | END 2022-05-20 10:52 | disposition home or self-care (01) | LOC: HO.LNP 10:51 | PROVIDERS: Visit Provider Advanced Practice Midwife | DX: Z13.89 Encounter for screening for other disorder (principal) ==

== ENCOUNTER → 2022-05-27 09:44 | Outpatient (BNVA) | payer MEDICAID, SELFPAY | PROVIDERS: Visit Provider Advanced Practice Midwife | DX: Z34.93 Encounter for supervision of normal pregnancy, unspecified, third trimester (principal) | CPT/HCPCS: 81003; 99212 ==

== ENCOUNTER 2022-06-03 09:32 | Outpatient (REF) | payer MEDICAID, SELFPAY ==
[2022-06-04 13:23] LABS: BV Int Neg Control Negative (Negative); BV Int Pos Control Positive (Positive)
== END 2022-06-03 09:33 | disposition home or self-care (01) ==
LOC: HO.LNP 09:32
PROVIDERS: Visit Provider Advanced Practice Midwife
DX: O26.893 Other specified pregnancy related conditions, third trimester (principal); N89.8 Other specified noninflammatory disorders of vagina; Z3A.38 38 weeks gestation of pregnancy
CPT/HCPCS: 87480; 87510; 87660; 99212

== ENCOUNTER → 2022-06-09 14:35 | Outpatient (BNVA) | payer MEDICAID, SELFPAY | PROVIDERS: Visit Provider Obstetrics & Gynecology | DX: O26.853 Spotting complicating pregnancy, third trimester (principal); O09.293 Supervision of pregnancy with other poor reproductive or obstetric history, third trimester; O99.820 Streptococcus B carrier state complicating pregnancy; Z3A.39 39 weeks gestation of pregnancy | CPT/HCPCS: 99212 ==

== ENCOUNTER 2022-07-29 10:45 | Outpatient (REF) | payer MEDICAID, SELFPAY | END 2022-07-29 10:46 | disposition home or self-care (01) | LOC: HO.LNP 10:45 | PROVIDERS: Visit Provider Advanced Practice Midwife | DX: R10.2 Pelvic and perineal pain (principal) | CPT/HCPCS: 81025; 87086; 99212 ==

== ENCOUNTER → 2022-08-04 13:07 | Outpatient (BNVA) | payer MEDICAID, SELFPAY | PROVIDERS: Visit Provider Advanced Practice Midwife | DX: Z30.430 Encounter for insertion of intrauterine contraceptive device (principal) | CPT/HCPCS: 58300; 81025; 99212; J7298 ==

== ENCOUNTER → 2022-10-25 14:00 | Outpatient (BNVA) | payer MEDICAID, SELFPAY | PROVIDERS: Visit Provider Advanced Practice Midwife | DX: Z30.431 Encounter for routine checking of intrauterine contraceptive device (principal) | CPT/HCPCS: 99212 ==

== ENCOUNTER 2023-02-01 08:43 | Outpatient (REF) | payer MEDICAID, SELFPAY ==
--- NOTE | ~2023-02-01 | US_ITS ---
EXAMINATION: US PELVIS CLINICAL INFORMATION: Pelvic pain COMPARISON: None available. TECHNIQUE: Ultrasound of the pelvis is performed using both transabdominal and transvaginal transducers along with Doppler. Transvaginal imaging is performed due to inadequate visualization transabdominally. FINDINGS: Uterus: The uterus is anteverted and measures 7.2 x 3.4 x 4.6 cm. The double wall endometrial thickness cannot be determined as this is obscured by an IUD which appears to be in good position. The uterus is smooth in contour and has normal myometrial echogenicity. No visible fibroid. Adnexa: Both ovaries are visualized. There is normal color flow to the adnexa. There is no ovarian torsion. There is no pelvic ascites or fluid collection. Right ovary measures 3.8 x 2.9 x 2.2 cm for a volume of 12.7 mL. Left ovary measures 3.0 x 1.7 x 1.8 cm for a volume of 4.8 mL. US/US pelvic and transvaginal IMPRESSION: Negative exam. An IUD is present and appears to be in good position.
[2023-02-01 11:03] LABS: HCG Quantitative < 2 mIU/mL
== END 2023-02-01 08:44 | disposition home or self-care (01) ==
LOC: HO.US 08:43
PROVIDERS: Visit Provider Advanced Practice Midwife
DX: Z30.431 Encounter for routine checking of intrauterine contraceptive device (principal); R10.2 Pelvic and perineal pain
CPT/HCPCS: 36415; 76830; 76856; 84702; 99212

== ENCOUNTER 2023-02-01 13:10 | Outpatient (AMB) | payer MEDICAID, SELFPAY ==
--- NOTE | 2023-02-01 13:37 | A.OFFVIS_ITS ---
Intake Vital Signs 02/01/23 13:38 Height 5 ft 2 in Weight 120 lb BMI 21.9 BP 100/60 Intake Visit Reasons: US follow up/ labs Intake Note: The patient agreed to use of a medical insurance biller during this encounter. Scribed for BETTYE Sullivan by Pretty Mathews medical insurance biller, on 02/01/2023 at 1:57 pm EST. Allergies animal dander [ANIMAL DANDER] Allergy (Unknown, Verified 02/01/23 13:37) SNEEZING SEASONAL ALLERGIES Allergy (Unknown, Uncoded 10/25/22 14:26) SNEEZING HPI HPI Comments History of Present Illness Details She is here to discuss US results regarding pelvic pain. Reports pelvic pain is only occasionally felt on the lower left side. Has occasional gas pains. Denies constipation or urinary symptoms. [facility] Medical History Pelvic pain Presence of 52 mg levonorgestrel-releasing intrauterine device (IUD) Asthma Surgical History History of appendectomy Family History Maternal Aunt Uterine cancer Social History Alcohol intake: never Patient Tobacco Use Status: Never used Tobacco Female Reproductive History Menstrual Age of Menarche: 10 Physical Exam Vital Signs: Last Vital Signs BP 100/60 02/01/23 13:38 BMI result Body Mass Index 21.9 Const General: cooperative, healthy appearing, comfortable, no acute distress, well developed, alert and awake Other: General: Yes bladder normal to palpation External Female Exam: normal external appearance and normal appearance of the urethra Speculum Exam - Vagina: normal appearance of the vagina, normal palpation and normal vaginal discharge Speculum Exam - Cervix: normal appearance of the cervix and normal palpation Bimanual exam- vagina & uterus: normal bimanual exam, normal palpation, bladder normal to palpation and normal palpation Bimanual Exam- Adnexa, other: normal adnexae and no masses Results Reviewed Results Reviewed: EXAMINATION: US PELVIS CLINICAL INFORMATION: Pelvic pain COMPARISON: None available. TECHNIQUE: Ultrasound of the pelvis is performed using both transabdominal and transvaginal transducers along with Doppler. Transvaginal imaging is performed due to inadequate visualization transabdominally. FINDINGS: Uterus: The uterus is anteverted and measures 7.2 x 3.4 x 4.6 cm. The double wall endometrial thickness cannot be determined as this is obscured by an IUD which appears to be in good position. The uterus is smooth in contour and has normal myometrial echogenicity. No visible fibroid. Adnexa: Both ovaries are visualized. There is normal color flow to the adnexa. There is no ovarian torsion. There is no pelvic ascites or fluid collection. Right ovary measures 3.8 x 2.9 x 2.2 cm for a volume of 12.7 mL. Left ovary measures 3.0 x 1.7 x 1.8 cm for a volume of 4.8 mL. US/US pelvic and transvaginal IMPRESSION: Negative exam. An IUD is present and appears to be in good position. Assessment & Plan Assessment & Plan (1) Encounter to discuss test results: Code(s): Z71.2 - Person consulting for explanation of examination or test findings Plan: Discussed: US findings: IUD in good position. All of her questions and concerns were addressed to the best of my ability and shared decision making. She is agreeable to plan of care. (2) Pelvic pain: Code(s): R10.2 - Pelvic and perineal pain Plan: Advised dietary changes: to avoid carbonated drinks and cruciferous foods or other gas producing foods as needed. BV testing and GC/CT panel done today. Await results and treat accordingly. Orders: Orders Bacterial Vaginosis Panel Today R10.2 - Pelvic and perineal pain CT NG by PCR Today R10.2 - Pelvic and perineal pain Coding Level of Care Code Est Pt Level 3 (60862) Diagnoses Encounter to discuss test results Z71.2 Pelvic pain R10.2
[2023-02-01 13:38] VITALS: BP 100/60; BMI 21.9
== END 2023-02-01 16:02 | disposition home or self-care (01) ==
PROVIDERS: Visit Provider Advanced Practice Midwife
DX: Z71.2 Person consulting for explanation of examination or test findings (principal); R10.2 Pelvic and perineal pain
CPT/HCPCS: 99213

== ENCOUNTER 2023-02-01 14:07 | Outpatient (REF) | payer MEDICAID, SELFPAY ==
[2023-02-01 18:23] LABS: CT PCR NOT DETECTED (Not Detect.); NG PCR NOT DETECTED (Not Detect.)
[2023-02-02 13:00] LABS: BV Int Neg Control Negative (Negative); BV Int Pos Control Positive (Positive)
== END 2023-02-01 14:08 | disposition home or self-care (01) ==
LOC: HO.LNP 14:07
PROVIDERS: Visit Provider Advanced Practice Midwife
DX: R10.2 Pelvic and perineal pain (principal)
CPT/HCPCS: 0353U; 87480; 87510; 87660

== ENCOUNTER 2023-02-01 14:07 | Outpatient (REF) | payer MEDICAID, SELFPAY | END 2023-02-01 14:08 | disposition home or self-care (01) | LOC: HO.LAB 14:07 | PROVIDERS: Visit Provider Advanced Practice Midwife | DX: Z13.89 Encounter for screening for other disorder (principal) ==

== ENCOUNTER 2023-07-14 13:02 | Outpatient (REF) | payer MEDICAID, SELFPAY ==
[2023-07-15 09:53] LABS: CT PCR NOT DETECTED (Not Detect.); NG PCR NOT DETECTED (Not Detect.)
[2023-07-15 12:06] LABS: BV Int Neg Control Negative (Negative); BV Int Pos Control Positive (Positive)
== END 2023-07-14 13:03 | disposition home or self-care (01) ==
LOC: HO.LNP 13:02
PROVIDERS: Visit Provider Advanced Practice Midwife
DX: Z12.4 Encounter for screening for malignant neoplasm of cervix (principal); R10.2 Pelvic and perineal pain; Z97.5 Presence of (intrauterine) contraceptive device
CPT/HCPCS: 0353U; 87480; 87510; 87660; 99395

== ENCOUNTER 2023-07-14 13:02 | Outpatient (AMB) | payer MEDICAID, SELFPAY ==
--- NOTE | 2023-07-14 13:22 | A.OFFVIS_ITS ---
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 She experienced an unusual pain 2 days ago when she was having sex it made them. It was on the right side felt like a really bad cramp she was trying to think of all the possibilities and she came up with the possibility that maybe it was a kidney stone and the reason she thought of that was because her [id number] had them and she is seen her in pain. She does not have a personal history of having these at all she had Peed before she was having intercourse so she did not have a full bladder it did go way some time after and was completely gone by the next day. She said that she is gone to the emergency room in the past with pain and they told her she had ovarian cyst but they were very small. She has had her appendix taken out on that side so can not be that she had had no corresponding diarrhea or constipation either. She has the Mirena IU S this is her 2nd 1 this is placed after the of her child her child is now year old and is calling and getting around but has not started fully walking it. [facility] Medical History (Updated 07/14/23 @ 14:30 by Catherine Izaguirre CNM) Pelvic pain Presence of 52 mg levonorgestrel-releasing intrauterine device (IUD) Asthma Surgical History History of appendectomy Family History Maternal Aunt Uterine cancer Social History Alcohol intake: never Patient Tobacco Use Status: Never used Tobacco Female Reproductive History Menstrual Age of Menarche: 10 control method: progestin IUCD Total pregnancies: 3 Full term: 2 Number of Living Children: 2 Ab spontaneous: 1 Date of last pap smear: 12/20/21 (negative) Physical Exam Vital Signs: Last Vital Signs BP 112/74 07/14/23 13:23 BMI result Body Mass Index 22.7 Const Other: Small circular irregular patches on upper chest consistent with tinea versacolor . General: healthy appearing, comfortable, no acute distress, well developed and alert Nutritional Appearance: average body habitus Orientation/consciousness: patient oriented x3 Limitations: no limitations HEENT Head: Yes normocephalic Neck Neck: Yes normal visual inspection Chest Chest palpation & inspection: normal inspection of the chest Breast/axilla inspection: normal inspection of the breasts and normal inspection of the axillae Breast/axilla palpation: normal palpation of the breasts and normal palpation of the axillae Resp Effort & Inspection: normal respiratory effort GI Inspection: Yes normal to inspection, No Abdominal wall edema and No distended Palpation (GI): Soft to palpation and nontender Other: Speculum exam within normal limits vagina pink and moist cervix multiparous pink smooth with Mirena string visible extending about 2-3 cm. Her uterus is small anteverted mobile nontender her ovaries are very easily palpable and I had the patient feel them herself as well they are smooth not enlarged and mobile nontender. She is good tone with Kegel. General: Yes bladder normal to palpation External Female Exam: normal external appearance and normal appearance of the urethra Speculum Exam - Vagina: normal appearance of the vagina, normal palpation and normal vaginal discharge Speculum Exam - Cervix: normal appearance of the cervix, normal palpation and nontender Bimanual exam- vagina & uterus: normal bimanual exam, normal palpation, uterine size normal, bladder normal to palpation, consistency normal, normal palpation, uterine mobility normal, uterine shape normal, No Cervical tenderness present, non-tender and no cervical motion tenderness Bimanual Exam- Adnexa, other: normal adnexae, no masses, normal and No adnexal tenderness Neuro General: patient oriented x3 Assessment & Plan Assessment & Plan (1) Presence of 52 mg levonorgestrel-releasing intrauterine device (IUD): Comment: This is her 2nd 1, inserted 7 weeks , on 08/04/2022. Code(s): Z97.5 - Presence of (intrauterine) contraceptive device (2) Cervical cancer screening: Comment: first pap 12/16/21= negative Code(s): Z12.4 - Encounter for screening for malignant neoplasm of cervix (3) Pelvic pain: Comment: Discussed in detail- has resolved Code(s): R10.2 - Pelvic and perineal pain (4) Well woman exam with routine gynecological exam: Code(s): Z01.419 - Encounter for gynecological examination (general) (routine) without abnormal findings Plan -----Discussed in this visit the following: healthy balanced diet, regular and consistent exercise, getting recommended health screens, doing the best she can for her particular health concerns, kegel exercises, pap smear screening and followup recommendations, mammography screening and SBE, normal changes in cycles in her life stage--- . Discussed the symptoms she had and the details of it in quite detail discussed her history of previous diagnosis with ovarian cysts when she had pain discussed that even then she told was told they were small and would go away on their own and that is what happened. Her appendix has already been removed she had no other concurring symptom along with it and the pain has resolved discussed the physiology of ovarian function throughout our month and cycle and that even with hormonal medications that are suppressing some of their functions that are body's are still going through their processes and they have their function and we may never know what caused her pain but it has resolved. RTC 1 year for annual exam would probably be due for her Pap then. She voiced some interest in getting her tubes tied discussed that there is a very high incidence of regret when it is done in her age and she should not embark on this lightly and since there are other things to do that are less permanent that is usually the maldonado way to go. Coding Level of Care Code Est Pt Prev Care 18-39y(89988) Diagnoses Presence of 52 mg levonorgestrel-releasing intrauterine device (IUD) Z97.5 Cervical cancer screening Z12.4 Pelvic pain R10.2 Well woman exam with routine gynecological exam Z01.419
[2023-07-14 13:23] VITALS: BP 112/74; BMI 22.7
== END 2023-07-14 14:26 | disposition home or self-care (01) ==
LOC: HO.HWSM 13:03
PROVIDERS: Visit Provider Advanced Practice Midwife
DX: Z97.5 Presence of (intrauterine) contraceptive device (principal); Z12.4 Encounter for screening for malignant neoplasm of cervix; R10.2 Pelvic and perineal pain; Z01.419 Encounter for gynecological examination (general) (routine) without abnormal findings
CPT/HCPCS: 99395

== ENCOUNTER 2023-09-27 10:23 | Outpatient (AMB) | payer MEDICAID, SELFPAY ==
[2023-09-27 10:30] VITALS: BP 100/60; BMI 22.5
--- NOTE | 2023-09-27 10:30 | A.OFFVIS_ITS ---
Vital Signs 09/27/23 10:30 Height 5 ft 2 in Weight 123 lb BMI 22.5 BP 100/60 Intake Visit Reasons: control consult Applications Processor Required: No Information Interpreted: clinical only Set Off Press Operator: Set Off Press Operator Present Allergies animal dander [ANIMAL DANDER] Allergy (Unknown, Verified 09/27/23 10:32) SNEEZING SEASONAL ALLERGIES Allergy (Unknown, Uncoded 09/27/23 10:32) SNEEZING Is last menstrual period known: No (IUD) Do you need a note to return to daycare/school/sports/work: No HPI HPI control consult : Details: Patient is here because she wants to switch from a Mirena to a Nexplanon. She had the Mirena before and it was fine but ever since this ones been inserted she is feeling like it bothers her when she has sex it does not cause pain per se but it just bothers her she just feels like she can feel like it is there and she is not happy with it anymore. She has had this 1 about a year. She has had the Nexplanon in the past and she bled with it which is why she chose this method but she is ready to try the Nexplanon again her sister has it and is having a good experience with it again so she is willing to give it ano ther try. She knows that anything is possible in terms of the side effects of bleeding. She does not want any more kids she says she would like to get her tubes tied she knows she is only 23 and she has been told she is too young. (indeed I have shared with this patient myself that while there are other long- term reversible methods available that they are very often the wiser choice when 1 is a this age and that many times women may feel differently after some time has passed and regret having had her tubes tied at an early age. Reviewed the side effects and the unpredictability of this side effects she has not really getting regular menses she gets a little spotting for a couple of days here and there which she assumes or like a light. But they are not on a regular basis and they are not predictable so would not be possible to schedule Nexplanon insertion based on a. The patient inquired about having the Mirena removed 1st and then the Nexplanon inserted however I did review the need to absolutely 100% avoid unprotected intercourse and that is a challenge as well therefore since she is very clear that she does not want to get and have anymore children then it would be wiser to insert the Nexplanon when it arrives and then plan on Mirena removal a short time after possibly a week after. Patient signed the form for the Nexplanon and we will call her when it arrives and inserted whenever possible and then very soon after remove her Mirena. [facility] Medical History Pelvic pain Presence of 52 mg levonorgestrel-releasing intrauterine device (IUD) Asthma Surgical History History of appendectomy Family History Maternal Aunt Uterine cancer Social History Alcohol intake: never Patient Tobacco Use Status: Never used Tobacco Female Reproductive History Menstrual Age of Menarche: 10 Duration of menses: <3 days control method: progestin IUCD Total pregnancies: 3 Full term: 2 Date of last pap smear: 12/10/21 (negative) History of abnormal pap smear: No Physical Exam Vital Signs: Last Vital Signs BP 100/60 09/27/23 10:30 BMI result Body Mass Index 22.5 Assessment & Plan Assessment & Plan (1) Presence of 52 mg levonorgestrel-releasing intrauterine device (IUD): Comment: This is her 2nd 1, inserted 7 weeks , on 08/04/2022. Code(s): Z97.5 - Presence of (intrauterine) contraceptive device Category: Social Hx (2) control counseling: Comment: Wants to switch back to the Nexplanon discussed insertion of the Nexplanon 1st and very soon after the Mirena. Code(s): Z30.09 - Encounter for other general counseling and advice on contraception Category: Medical Plan Patient is here because she wants to switch from a Mirena to a Nexplanon. She had the Mirena before and it was fine but ever since this ones been inserted she is feeling like it bothers her when she has sex it does not cause pain per se but it just bothers her she just feels like she can feel like it is there and she is not happy with it anymore. She has had this 1 about a year. She has had the Nexplanon in the past and she bled with it which is why she chose this method but she is ready to try the Nexplanon again her sister has it and is having a good experience with it again so she is willing to give it another try. She knows that anything is possible in terms of the side effects of bleeding. She does not want any more kids she says she would like to get her tubes tied she knows she is only 23 and she has been told she is too young. (indeed I have shared with this patient myself that while there are other long- term reversible methods available that they are very often the wiser choice when 1 is a this age and that many times women may feel differently after some time has passed and regret having had her tubes tied at an early age. Reviewed the side effects and the unpredictability of this side effects she has not really getting regular menses she gets a little spotting for a couple of days here and there which she assumes or like a light. But they are not on a regular basis and they are not predictable so would not be possible to schedule Nexplanon insertion based on a. The patient inquired about having the Mirena removed 1st and then the Nexplanon inserted however I did review the need to absolutely 100% avoid unprotected intercourse and that is a challenge as well therefore since she is very clear that she does not want to get and have anymore children then it would be wiser to insert the Nexplanon when it arrives and then plan on Mirena removal a short time after possibly a week after. Patient signed the form for the Nexplanon and we will call her when it arrives and inserted whenever possible and then very soon after remove her Mirena. Coding Level of Care Code Est Pt Level 3 (84753) Diagnoses Presence of 52 mg levonorgestrel-releasing intrauterine device (IUD) Z97.5 control counseling Z30.09
== END 2023-09-27 11:28 | disposition home or self-care (01) ==
PROVIDERS: Visit Provider Advanced Practice Midwife
DX: Z97.5 Presence of (intrauterine) contraceptive device (principal); Z30.09 Encounter for other general counseling and advice on contraception
CPT/HCPCS: 99213

== ENCOUNTER → 2023-09-27 10:23 | Outpatient (BNVA) | payer MEDICAID, SELFPAY | PROVIDERS: Visit Provider Advanced Practice Midwife | DX: Z30.09 Encounter for other general counseling and advice on contraception (principal); Z97.5 Presence of (intrauterine) contraceptive device | CPT/HCPCS: 99212 ==

== ENCOUNTER 2023-12-04 13:03 | Outpatient (AMB) | payer MEDICAID, SELFPAY ==
--- NOTE | 2023-12-04 13:08 | MHC.OFFVIS ---
Vital Signs 12/04/23 13:09 Height 5 ft 2 in Weight 126 lb BMI 23.0 BP 110/60 Intake Visit Reasons: Nexplanon insertion Smasher Hand Required: No Information Interpreted: clinical only Concert Or Lecture Hall Manager: Concert Or Lecture Hall Manager Present Allergies animal dander [ANIMAL DANDER] Allergy (Unknown, Verified 12/04/23 13:13) SNEEZING SEASONAL ALLERGIES Allergy (Unknown, Uncoded 12/04/23 13:13) SNEEZING Medication List - Last Reconciled 12/04/23 by Catherine Izaguirre CNM levonorgestrel (Mirena) intrauterine Is last menstrual period known: No (IUD) HPI Comments Details: plan from last visit, to be implemented today..... Plan Patient is here because she wants to switch from a Mirena to a Nexplanon. She had the Mirena before and it was fine but ever since this ones been inserted she is feeling like it bothers her when she has sex it does not cause pain per se but it just bothers her she just feels like she can feel like it is there and she is not happy with it anymore. She has had this 1 about a year. She has had the Nexplanon in the past and she bled with it which is why she chose this method but she is ready to try the Nexplanon again her sister has it and is having a good experience with it again so she is willing to give it another try. She knows that anything is possible in terms of the side effects of bleeding. She does not want any more kids she says she would like to get her tubes tied she knows she is only 23 and she has been told she is too young. (indeed I have shared with this patient myself that while there are other long-term reversible methods available that they are very often the wiser choice when 1 is a this age and that many times women may feel differently after some time has passed and regret having had her tubes tied at an early age. Reviewed the side effects and the unpredictability of this side effects she has not really getting regular menses she gets a little spotting for a couple of days here and there which she assumes or like a light. But they are not on a regular basis and they are not predictable so would not be possible to schedule Nexplanon insertion based on a. The patient inquired about having the Mirena removed 1st and then the Nexplanon inserted however I did review the need to absolutely 100% avoid unprotected intercourse and that is a challenge as well therefore since she is very clear that she does not want to get and have anymore children then it would be wiser to insert the Nexplanon when it arrives and then plan on Mirena removal a short time after possibly a week after. Patient signed the form for the Nexplanon and we will call her when it arrives and inserted whenever possible and then very soon after remove her Mirena. [facility] Medical History Pelvic pain Presence of 52 mg levonorgestrel-releasing intrauterine device (IUD) Asthma Surgical History History of appendectomy Family History Maternal Aunt Uterine cancer Social History Alcohol intake: never Patient Tobacco Use Status: Never used Tobacco Female Reproductive History Menstrual Age of Menarche: 10 Duration of menses: <3 days control method: progestin IUCD Total pregnancies: 3 Full term: 2 Date of last pap smear: 09/09/21 (negative) History of abnormal pap smear: No Physical Exam Vital Signs: Last Vital Signs BP 110/60 12/04/23 13:09 BMI result Body Mass Index 23.0 Const Other: Evidence of a previous Nexplanon evident in her left arm she said that was the 1st long-term method she used, before her two Mirenas Office Procedures Contraception Insert/Removal Details Details: Nexplanon Insertion Procedure The patient was placed in a supine position with her non dominant hand resting under her head. The insertion site was located: 8-10cm from the medial epicondyle notch of the humerus, posterior to the sulcus, between the triceps and biceps muscle. The area of the previous implant was identified. ( She'd had one years before. This area was cleansed with an alcohol prep, and 2.5 ml of 2% Lidocaine on a 25 gauge needle and syringe was utilized for adequate anesthesia to the insertion site. After ascertaining adequate anesthesia, the area was prepped with Betadine solution. The Nexplanon device was removed from the manufacturers package and the implant was noted in the trocar canal. The trocar was inserted at a 30 degree angle and then lowered parallel to the skin for insertion into the subcutaneous space with counter traction. I Placed this 1 just proximal to her previous insertion site. it was very little bleeding at the insertion site, and Direct pressure was applied to the insertion site for hemostasis, minimal bleeding was observed. Steri strips, Tegaderm covering, gauze pads, and Roma wrap dressing were secured with paper tape. The implant was palpable underneath the skin by myself and the patient. The patient tolerated the procedure well and left the office in good condition. I am recommending that she leave pressure dressing on for several hours and leave the Tegaderm on for 3 days and she should call for signs and symptoms of expulsion or infection warmth or heat. She should avoid heavy lifting that arm( i.e. do not lift 1 of her children with 1 arm) Office Meds Nexplanon 68 mg subdermal implant Performing Provider: Catherine Izaguirre CNM [facility] [facility] Administered by: Magaly Meier CMA on 12/04/23 13:59 Dose Route Admin Location Dispensed Lot Number Expiration Date [facility] Ed[employer] Developer 1 implant subdermal 1 implant [id number] 02/24/25 [id number] Monitor My Meds Results AMB Test Urine AMB Test Urine Negative Last Edit by Magaly Meier CMA on 12/04/23 13:25 Results Reviewed Results Reviewed: Laboratory Last Values Tst Clinic Negative 12/04/23 13:24 Name: Trinidad Kerr Age/Sex: 21/F Attending: Catherine Izaguirre CNM : 2000 Submitted by: Catherine Izaguirre CNM Copies to: MR #: [id number] Status: DEP REF Collected: 12/16/21 Location: .LAB Received: 12/20/21 Interpretation Satisfactory for evaluation. Negative for intraepithelial lesion or malignancy. Clinical Information LMP: 09/09/21 Previous PAP test: N/A, Unknown Material Received ThinPrep-Cervical Electronically Signed By: Sonia Hernandez 12/22/212019 The Pap Test is a screening procedure with the inherent possibility of both false negative and false positive results. Results should be interpreted in the context of historic and current clinical findings. Reliability of the Pap Test is enhanced by performing the test on a regular repetitive basis. Patient: Trinidad Kerr Age/Sex: 21/F MR#: [id number] Page 1 of 1 Assessment & Plan Assessment & Plan (1) control counseling: Comment: Wants to switch back to the Nexplanon discussed insertion of the Nexplanon 1st and very soon after the Mirena. Code(s): Z30.09 - Encounter for other general counseling and advice on contraception Category: Medical (2) Presence of 52 mg levonorgestrel-releasing intrauterine device (IUD): Comment: This is her 2nd 1, inserted 7 weeks , on 08/04/2022./new Nexplanon, her 2nd in her life, inserted 12/04/2023, and plan is to remove her 2nd Mirena in 4-6 to give her time to be sure she likes the side effects of the Nexplanon. Code(s): Z97.5 - Presence of (intrauterine) contraceptive device Category: Social Hx (3) Insertion of Nexplanon: Comment: This is her 2nd. Plan is for removal of the 2nd Mirena when she sure she is happy with the side effects of the Nexplanon, in about 4-6 weeks. Code(s): Z30.017 - Encounter for initial prescription of implantable subdermal contraceptive Category: Medical Plan Insertion went extremely smoothly. This is her 2nd Nexplanon she also has her 2nd Mirena in at the current moment. Since this is her 2nd Nexplanon and she has had 2 Mirena as so far I recommend she wait a little bit perhaps to 4-6 weeks before deciding for sure that she is happy with this Nexplanon we will schedule the removal of the Mirena for 4 6 weeks from today and if she is still happy with the Nexplanon and wants the Mirena out we will take it out on that day and that way we can also check to see how she is doing the Nexplanon. She also voiced that she really wants to have her tubes tied eventually but she said that I would not let her and I corrected any miss information she may have acquired. I told her again I do not do surgery so I would not be the 1 to stop her from having a tubal ligation in general it is encouraged that young women consider other long-term methods that are reversible before jumping to a tubal ligation that is not reversible. When she decides that she is ready for tubal ligation she simply needs to make an appointment with a gynecology surgeon who is able to do that kind of surgery and discuss it with him in this practice that would be Dr. Soni the [facility]. I did confirm with her that she was not thinking about doing that any time soon in any case so we did proceed with the Nexplanon insertion today. I wanted to be sure this because if she was thinking about getting her tubes tied very very soon it really might not be worth her putting in the Nexplanon today but she decided to proceed with it so we did. I again reviewed both before and after the insertion possible side effects to expect in including weight gain and increased appetite and mood changes/tendency towards depression if she experiences this or abnormal bleeding or anything else she is to let us know and we will discuss with her what her options are. Orders: Orders AMB Nexplanon/Implanon Insertion/Removal - Practice Supplied Today Z30.017 - Encounter for initial prescription of implantable subdermal contraceptive AMB HCG Urine Test Today Z32.02 - Encounter for test, result negative Coding Level of Care Code Est Pt Level 3 (01713) Diagnoses control counseling Z30.09 Presence of 52 mg levonorgestrel-releasing intrauterine device (IUD) Z97.5 Insertion of Nexplanon Z30.017
[2023-12-04 13:09] VITALS: BP 110/60; BMI 23.0
== END 2023-12-04 14:04 | disposition home or self-care (01) ==
PROVIDERS: Visit Provider Advanced Practice Midwife
DX: Z30.09 Encounter for other general counseling and advice on contraception (principal); Z97.5 Presence of (intrauterine) contraceptive device; Z30.017 Encounter for initial prescription of implantable subdermal contraceptive; Z32.02 Encounter for pregnancy test, result negative
CPT/HCPCS: 99213

== ENCOUNTER → 2023-12-04 13:03 | Outpatient (BNVA) | payer MEDICAID, SELFPAY | PROVIDERS: Visit Provider Advanced Practice Midwife | DX: Z30.46 Encounter for surveillance of implantable subdermal contraceptive (principal); Z32.02 Encounter for pregnancy test, result negative | CPT/HCPCS: 81025; 99212; J7307 ==

== ENCOUNTER 2024-01-15 14:24 | Outpatient (AMB) | payer MEDICAID, SELFPAY ==
[2024-01-15 14:44] VITALS: BP 110/60; BMI 23.0
--- NOTE | 2024-01-15 14:44 | A.OFFVIS_ITS ---
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: Grain Wafer Machine Operator Present Allergies animal dander [ANIMAL DANDER] Allergy (Unknown, Verified 01/15/24 14:44) SNEEZING SEASONAL ALLERGIES Allergy (Unknown, Uncoded 01/15/24 14:44) SNEEZING Medication List - Last Reconciled 01/15/24 by Catherine Izaguirre CNM etonogestrel (Nexplanon) subdermal levonorgestrel (Mirena) intrauterine Is last menstrual period known: No HPI HPI IUD removal(Mirena) &Nexplanon check: Details: Patient is here for removal of her Mirena IU S and to check on her Nexplanon that she had inserted she has switched from 1 method to the other she now has her 2nd Nexplanon and she wants the Mirena out. Also she thinks she might have a UTI hot she has some lower back pain she does describes and urinary frequency and urgency. She also has yellowish discharge that she checked and she thought that was a symptom of a UTI. She likes the Nexplanon and is not having any negative side effects to that. [facility] Medical History Pelvic pain Presence of 52 mg levonorgestrel-releasing intrauterine device (IUD) Asthma Surgical History History of appendectomy Family History Maternal Aunt Uterine cancer Social History Alcohol intake: never Patient Tobacco Use Status: Never used Tobacco Female Reproductive History Menstrual Age of Menarche: 10 Duration of menses: 3-5 days control method: progestin IUCD and implanted Total pregnancies: 3 Full term: 2 Date of last pap smear: 12/10/21 (negative) Physical Exam Vital Signs: Last Vital Signs BP 110/60 01/15/24 14:44 BMI result Body Mass Index 23.0 Const Other: Patient has Nexplanon food in left on this is her 2nd so she has means from previous removal and insertion as well Other: External exam vulva slightly reddened. Is above the white semi thick discharge cervix multiparous Mirena string visible os testing done for gonorrhea chlamydia trichomoniasis Jackie and Gardnerella and the patient's Mirena strings grasped with ring forceps and Mirena patient giving a cough Office Procedures IUD Insert/Removal Details Details: See the PE note. Vagina slightly reddened creamy whitish bubbly yellow white discharge multiparous cervix noted with Mirena string at patient request. Mirena string was grasped with ring forceps and Mirena was easily while patient gave a cough. [id number] Removal Procedure code (CPT) selection complete Results AMB Test Urine AMB Test Urine Negative Last Edit by Magaly Meier CMA on 01/15/24 15:12 Results Reviewed Results Reviewed: Name: Trinidad Kerr Age/Sex: 21/F Attending: Catherine Izaguirre CNM : 2000 Submitted by: Catherine Izaguirre CNM Copies to: MR #: [id number] Status: DEP REF Collected: 12/16/21 Location: .LAB Received: 12/20/21 Interpretation Satisfactory for evaluation. Negative for intraepithelial lesion or malignancy. Clinical Information LMP: 09/09/21 Previous PAP test: N/A, Unknown Material Received ThinPrep-Cervical Electronically Signed By: Sonia Hernandez 12/22/212019 The Pap Test is a screening procedure with the inherent possibility of both false negative and false positive results. Results should be interpreted in the context of historic and current clinical findings. Reliability of the Pap Test is enhanced by performing the test on a regular repetitive basis. Patient: Trinidad Kerr Age/Sex: 21/F MR#: [id number] Page 1 of 1 Assessment & Plan Assessment & Plan (1) Cervical cancer screening: Comment: first pap 12/16/21= negative Code(s): Z12.4 - Encounter for screening for malignant neoplasm of cervix Category: Medical (2) Presence of 52 mg levonorgestrel-releasing intrauterine device (IUD): Comment: This is her 2nd 1, inserted 7 weeks , on 08/04/2022./new Nexplanon, her 2nd in her life, inserted 12/04/2023, and plan is to remove her 2nd Mirena in 4-6 to give her time to be sure she likes the side effects of the Nexplanon. Code(s): Z97.5 - Presence of (intrauterine) contraceptive device Category: Social Hx (3) Nexplanon in place: Code(s): Z97.5 - Presence of (intrauterine) contraceptive device Category: Social Hx (4) Vaginal discharge: Code(s): N89.8 - Other specified noninflammatory disorders of vagina Category: Medical (5) Encounter for IUD removal: Code(s): Z30.432 - Encounter for removal of intrauterine contraceptive device Category: Medical (6) Urinary frequency: Code(s): R35.0 - Frequency of micturition Category: Medical Plan Reviewed symptoms of UTI versus other symptoms will await testing results to assess for gonorrhea chlamydia trichomoniasis Gardnerella or Jackie reviewed that the 1st 3 are STIs and that the other 2 are not. If it is simply Gardnerella that would be emotionally preferable. Discussed possible use of boric acid capsules for that as well but we will await the testing to see the results. She just voided for the test and can not void again so she can go to the lab when it is convenient for her to do a clean-catch urine. If it turns out that it is some other kind of infection that could explain her symptoms as well. It turns out she probably does not have a primary care provider so it did recommend she try to find 1. If everything is okay see her for her annuals. Orders: Orders CT NG by PCR Today N89.8 - Other specified noninflammatory disorders of vagina Bacterial Vaginosis Panel Today N89.8 - Other specified noninflammatory disorders of vagina Urine Culture Today N89.8 - Other specified noninflammatory disorders of vagina, R35.0 - Frequency of micturition, Z12.4 - Encounter for screening for malignant neoplasm of cervix, Z30.432 - Encounter for removal of intrauterine contraceptive device, Z97.5 - Presence of (intrauterine) contraceptive device AMB IUD Insertion/Removal - Patient Supply Today Z30.432 - Encounter for removal of intrauterine contraceptive device AMB HCG Urine Test Today Z32.02 - Encounter for test, result negative Coding Level of Care Code Est Pt Level 3 (16881) Diagnoses Cervical cancer screening Z12.4 Presence of 52 mg levonorgestrel-releasing intrauterine device (IUD) Z97.[address] Z97.5 Vaginal discharge N89.8 Encounter for IUD removal Z30.432 Urinary frequency R35.0 CPT Codes Details - CPT: 07377-DKV Removal ([id number])
== END 2024-01-15 15:28 | disposition home or self-care (01) ==
PROVIDERS: Visit Provider Advanced Practice Midwife
DX: Z30.432 Encounter for removal of intrauterine contraceptive device (principal); R35.0 Frequency of micturition; N89.8 Other specified noninflammatory disorders of vagina; Z32.02 Encounter for pregnancy test, result negative; Z97.5 Presence of (intrauterine) contraceptive device
CPT/HCPCS: 58301; 99213

== ENCOUNTER 2024-01-15 14:24 | Outpatient (REF) | payer MEDICAID, SELFPAY ==
[2024-01-16 06:00] LABS: CT PCR NOT DETECTED (Not Detect.); NG PCR NOT DETECTED (Not Detect.)
[2024-01-16 10:32] LABS: Bacterial Vaginosis PCR NEGATIVE (Negative); Candida Group PCR DETECTED (Not Detect); Candida glab krusei PCR NOT DETECTED (Not Detect); Trichomonas vaginalis PCR NOT DETECTED (Not Detect)
== END 2024-01-15 14:25 | disposition home or self-care (01) ==
LOC: HO.LAB 14:24
PROVIDERS: Visit Provider Advanced Practice Midwife
DX: N89.8 Other specified noninflammatory disorders of vagina (principal); R35.0 Frequency of micturition; Z30.432 Encounter for removal of intrauterine contraceptive device
CPT/HCPCS: 0352U; 58301; 81025; 87491; 87591; 99212

== ENCOUNTER 2024-01-16 16:02 | Outpatient (REF) | payer MEDICAID, SELFPAY | END 2024-01-16 16:03 | disposition home or self-care (01) | LOC: HO.LAB 16:02 | PROVIDERS: Visit Provider Advanced Practice Midwife | DX: Z97.5 Presence of (intrauterine) contraceptive device (principal); N89.8 Other specified noninflammatory disorders of vagina; Z12.4 Encounter for screening for malignant neoplasm of cervix; Z30.432 Encounter for removal of intrauterine contraceptive device; R35.0 Frequency of micturition; R82.79 Other abnormal findings on microbiological examination of urine | CPT/HCPCS: 87086; 87147 ==

== ENCOUNTER 2024-06-26 11:49 | Outpatient (REF) | payer MEDICAID, SELFPAY ==
--- OUTSIDE RECORDS SUMMARY | 2024-06-26 12:23 | XMS_ITS | Encounter Summary ---
Author Organization [employer] [facility] Address [address] [place] [address] Care Team Providers Care Patrol Mother Name Role Phone Emani Ford MD Primary Care Provider [phone] Encounter Details Date Type Department Care Team (Latest Contact Info) Description 06/26/2024 Travel Social History Tobacco Use Types Packs/Day Years Used Date Smoking Tobacco: Never Smokeless Tobacco: Never Alcohol Answer Date Recorded Q1: How often do you have a drink containing alc ohol? 2 06/26/2024 Q2: How many drinks containi ng alcohol do you have on a typical day when you are drinking? 1 06/26/2024 Q3: How often do you have six or more drinks on one occasion? 1 06/26/2024 Depression Answer Date Recorded Patient Health Questionnaire-9 Score 3 06/26/2024 Patient Health Questionnaire-9 Score 3 06/26/2024 Last PHQ-9: Questionnaire Data Not on file 0 06/26/2024 Housing Stability Answer Date Recorded What is your housing situation today? I have luis felipe lara 06/13/[address] you li ve. Do you have problems with any of the following? None of the above 06/13/2024 Food Insecurity Answer Date Recorded Within the past 12 months, y ou worried that your food would run out before you got money to buy more: Never True 06/13/2024 Within the past 12 months,th e food you bought just didn't last and you didn't have enough money to get more: Never True 10/2024 Transportation Answer Date Recorded In the past 12 months, has l ack of transportation kept you from medical appts, meetings, work or from getting things needed for daily living? No 06/13/2024 Utilities Answer Date Recorded In the past 12 months, has t he electric, gas, oil or water company threatened to shut off services in your home? No 06/13/2024 Depression Answer Date Recorded Patient Health Questionnaire-2 Score 0 06/26/2024 Internet Access Answer Date Recorded Internet Access Q1 Yes 06/13/2024 Internet Access Q2 Not on file 06/13/2024 Comments Unknown Sex and Gender Information Value Date Recorded Sex Assigned at Female 03/07/2022 10:19 AM EDT Legal Sex Female 10:19 AM EDT Gender Identity Female 05/02/2024 1:10 PM EST Sexual Orientation Straight 06/26/2024 9: 53 AM EST documented as of this encounter Plan of Treatment Not on file documented as of this encounter Visit Diagnoses Not on filedocumented in this encounter Additional Health Concerns Assessment Noted Time PHQ-9 Depression Total Score: 3 06/26/19 10:58 AM EST documented as of this encounter Care Teams Patrol Mother Relationship Specialty Start Date End Date Emani Ford MD [address] [place] [id number] PCP - General Internal Medicine 06/26/24 documented as of this encounter
--- OUTSIDE RECORDS SUMMARY | 2024-06-26 12:23 | XMS_ITS | Clinical Summary ---
Author Organization [employer] [facility] Address [address] [facility] [address] [place] [address] Care Team Providers Care System Administrator Name Role Phone Emani Ford MD Primary Care Provider [phone] Allergies No known active allergies Medications albuterol 108 (90 Base) MCG/ACT inhalerIndicatio ns:Mild intermittent asthma without complication Inhale 2 puffs every 4 (four) hours if needed for wheezing. 18 g 3 06/26/19 25 Active cetirizine (ZyrTEC) 10 MG tabletIndication s:Seasonal allergies Take 1 tablet (10 mg) by mouth Once per day. 30 tablet 11 06/26/19 25 026 Active albuterol 108 (90 Base) MCG/ACT inhaler 2 puffs. 08/12/19 20 025 Discontinued(Re order (will not trigger notification to Pharmacy)) Active Problems Problem Noted Date Diagnosed Date Mild intermittent asthma without complication Encounter for medical examination to establish c are 06/26/2024 Encounters Date Type Department Care Team Description 06/26/2024 10:00 AM EST Office Visit [facility] [address] [place] [address] Emani Ford MD Mild intermittent asthma without complication (Primary Dx); Seasonal allergies; Encounter for medical examination to establish care; Other fatigue; Social phobia 06/26/2024 Travel 06/13/2024 Patient Outreach [facility] [address] [place] [phone] Emani Ford MD Pre-visit Planning (SDOH screening negative and Tobacco screening negative) 05/02/2024 Telephone [facility] [address] [place] [phone] Cheo Escobedo MD New patient appt. 04/25/2024 Telephone [facility] [address] [facility] [place] [address] Cheo Escobedo MD New Patient from Last 3 Months Family History Medical History Relation Name Comments Hypertension Maternal Grandfather Hypertension Mother Breast cancer Mother's Sister Hypertension Sister Relation Name Status Comments Maternal Grandfather Mother Mother's Sister Sister Social History Tobacco Use Types Packs/Day Years Used Date Smoking Tobacco: Never Smokeless Tobacco: Never Tobacco Cessation:Counseling Given: No Alcohol Answer Date Recorded Q1: How often [...] Orientation Straight 06/26/2024 9: 53 AM EST Last Filed Vital Signs Vital Sign Reading Time Taken Comments Blood Pressure 112/68 06/26/2024 10:10 AM EST Pulse 73 06/26/2024 10:10 AM EST Temperature 36.7 ??C (98 ??F) 06/26/2024 10:10 AM EST Respiratory Rate 20 06/26/2024 10:10 AM EST Oxygen Saturation 98% 06/26/2024 10:10 AM EST Inhaled Oxygen Concentration - - Weight 57.6 kg (127 lb) 06/26/2024 10:10 AM EST Height 159 cm (5' 2.6 ) 06/26/2024 10:10 AM EST Body Mass Index 22.79 06/26/2024 10:10 AM EST Plan of Treatment Health Maintenance Due Date Last Done Comments Family Planning (PISQ) 2014 Pneumococcal Vaccine: Pediatrics (0 to 5 Years) and At-Risk Patients (6 to 49) Years) (1 of 2 - PCV) 2018 Pap Smear 02/28/2020 COVID-19 Vaccine (3 - season) 2024 10/22/2020, 09/24/2020 Influenza Vaccine (#1) 2024 5, 04/26/2012, 04/14/2011, Additional history exists Alcohol/Substance Use Screening 06/26/2025 06/26/2024 Depression Screening 06/26/2025 06/26/2024, 06/26/19 SDOH Screening 06/26/2025 06/26/2024 Tobacco Screening 06/26/2025 06/26/2024 DTaP/Tdap/Td Vaccines (8 - Td or Tdap) 04/25/2032 04/25/2022, 05/04/2015, 10/02/2003, Additional history exists Zoster Vaccines (1 of 2) 2049 RSV Patients and Patients Aged 60 years or older (1 - 1-dose 75+ series) 2074 Hepatitis B Vaccines Completed 1999, 1999, 1999 HIB Vaccines Completed 07/14/2000, 12/07, 1999, Additional history exists IPV Vaccines Completed 10/02/2003, 12/07, 1999, Additional history exists HPV Vaccines Completed 04/26/2012, 12/2010, 03/25/2010 Meningococcal Vaccine Completed 05/04/2015, 011 Hepatitis A Vaccines Completed 07/25/2016, 05/04/20 15 HIV Screening Completed 11/26/2021 Hepatitis C Screening Completed 11/26/2021 RSV under 20 months Aged Out No longe r eligible based on patient's age to complete this topic Rotavirus Vaccines Aged Out No longer eligible based on patient's age to complete this topic Procedures Procedure Name Priority Date/Time Associated Diagnosis Comments ZZZ HISTORICAL HEPATITIS B SURFACE ANTIGEN* Routine 11/26/2021 7:50 AM EDT from Last 3 Months or Most Recently Relevant to Health Maintenance Results * HEPATITIS B SURFACE ANTIGEN* (11/26/2021 7:50 AM EDT) [facility] Hepatitis B Surface Antigen Negative Negative [facility] Hepatitis C Antibody Nonreactive Nonreactive [facility] Comment: Antibodies to HCV not detected; does not exclude early acute HCV infection. HIV AB/AG Nonreactive Nonreactive [facility] Comment: HIV-1 p24 Ag and/or HIV-1/HIV-2 Ab not detected. ?? A test result that is nonreactive does not exclude the possibility of exposure to or infection with HIV-1 and/or HIV-2. Nonreactive results in this assay for individuals with prior exposure to HIV-1 and/or HIV-2 may be due to antigen and antibody levels that are below the limit of detection of this assay. ?? The [employer] In[employer] HIV Ag/Ab Combo assay result and supplemental assay results should be interpreted in conjunction with the patient's clinical presentation, history and other laboratory results. ??If the results are inconsistent with clinical evidence, additional testing is suggested to confirm the result. 11/26/2021 7:50 AM EDT us Catherine AmadorBurleson HISTORICAL/NON ORDERABLE LABS Fi nal Result [facility] [address] from Last 3 Months or Most Recently Relevant to Health Maintenance Insurance [facility] C3 Care Teams System Administrator Relationship Specialty Start Date End Date Emani Ford MD [address] [place] [id number] PCP - General Internal Medicine 06/26/24
--- OUTSIDE RECORDS SUMMARY | 2024-06-26 12:23 | XMS_ITS | Encounter Summary ---
Author Organization [facility] Address [address] [facility] [address] [facility] 7t [place] [address] Care Team Providers Care Pharmacist Apprentice Name Role Phone Unavailable Primary Care Provider Unavailabl e Reason for Visit * Reason Comments Pre-visit Planning SDOH screening negat gracia and Tobacco screening negative Encounter Details Date Type Department Care Team ([facility] st Contact Info) Description 06/13/2024 Patient Outreach [facility] [address] [place] [address] Emani Ford MD [address] [place], [place] [phone] Pre-visit Planning (SDOH screening negative and Tobacco screening negative) Social History Tobacco Use Types Packs/Day Years Used Date Smoking Tobacco: Never Assessed Housing Stability Answer Date Recorded What is [...] off services in your home? No 06/13/2024 Internet Access Answer Date Recorded Internet Access Q1 Yes 06/13/2024 Internet Access Q2 Not on file 06/13/2024 Comments Unknown Sex and Gender Information Value Date Recorded Sex Assigned at Female 03/07/2022 10:19 AM EDT Legal Sex Female 10:19 AM EDT Gender Identity Female 05/02/2024 1:10 PM EST Sexual Orientation Straight 06/26/2024 9: 53 AM EST documented as of this encounter Progress Notes * Hadley Miller - 06/13/2024 12:59 PM EST CC Hadley Stevens placed successful outbound call to patient for pre-visit planning. Patient name and confirmed. Patient confirms appt date and time, and has transportation arrangements. Biggest concern for appointment at this time is no concerns. Patient advised to bring to appointment a photo id and insurance card. Appropriate screenings completed in anticipation of appointment. documented in this encounter Plan of Treatment Not on file documented as of this encounter Visit Diagnoses Not on filedocumented in this encounter
--- OUTSIDE RECORDS SUMMARY | 2024-06-26 12:23 | XMS_ITS | Encounter Summary ---
Author Organization [facility] Address [address] [place] [address] [address] [address] Care Team Providers Care Unhairing Inspector Name Role Phone Emani Ford MD Primary Care Provider [phone]- [phone] Reason for Referral * Consultation (Routine) - Pending Review Specialty Diagnoses / Procedures Referred By Eder craft Referred To Contact Behavioral Health Diagnoses Social phobia Emani Ford MD [address] [place] [address] Phone: tel: fax: Referral ID Status Reason Start Date Expiration Date Visits Requested Visits Authorized [id number] Pending Review Specialty Services Required 06/26/2024 06/26/2025 1 1 Reason for Visit * Reason Comments Establish Care Encounter Details Date Type Department Care Team ([facility] Contact Info) Description 06/26/2024 10:00 AM EST Office Visit [facility] [address] [place] [address] Emani Ford MD [address] [place] [address] Mild intermittent asthma without complication (Primary Dx); Seasonal allergies; Encounter for medical examination to establish care; Other fatigue; Social phobia Social History Tobacco Use Types Packs/Day Years [...] AM EST documented as of this encounter Last Filed Vital Signs Vital Sign Reading [...] Mass Index 22.79 06/26/2024 10:10 AM EST documented in this encounter Progress Notes * Emani Ford MD - 06/26/2024 10:00 AM EST Subjective Patient ID: Trinidad Horn is a 24 y.o. female who presents for No chief complaint on file.. HPI Patient is here to establish care. Has history of bronchial asthma mild intermittent and seasonal allergies. Also complaining of feeling anxious when around people in a crowd. Also reports that she would like to get the definitive method of contraception. Her chart was reviewed and it was already discussed with her audio/video engineer who recommends to wait a little bit more as she might change her mind in the future given her age. Ms Trinidad Horn also complaining of feeling fatigued/tired in the last 2 to 3 months. Her menstrual period can last sometimes up to 10 days. But denies interference with of activity of daily living. Review of Systems Constitutional: Negative for activity change, appetite change, chills and diaphoresis. HENT: Negative for dental problem, drooling, ear discharge, ear pain and hearing loss. Eyes: Negative for pain, discharge and itching. Respiratory: Negative for cough, choking and chest tightness. Cardiovascular: Negative for chest pain and leg swelling. Gastrointestinal: Negative for blood in stool and diarrhea. Genitourinary: Negative for difficulty urinating, dyspareunia, dysuria, enuresis, flank pain, frequency and genital sores. Musculoskeletal: Negative for arthralgias, gait problem and joint swelling. Skin: Negative for pallor. Neurological: Negative for dizziness, seizures, speech difficulty, light- headedness and numbness. Psychiatric/Behavioral: Negative for behavioral problems, confusion and decreased concentration. Objective BP 112/68 (BP Location: Left arm, Patient Position: Sitting, BP Cuff Size: Adult) Pulse 73 Temp98 ??F (36.7 ??C) (Oral) Resp 20 Ht 5' 2.6 (1.59 m) Wt 127 lb (57.6 kg) SpO2 98% BMI 22.79 kg/m?? Physical Exam Constitutional: General: She is not in acute distress. Appearance: Normal appearance. She is not ill-appearing, toxic-appearing or diaphoretic. HENT: Head: Normocephalic. Right Ear: Tympanic membrane normal. There is no impacted cerumen. Left Ear: Tympanic membrane normal. There is no impacted cerumen. Nose: Nose normal. No congestion or rhinorrhea. Mouth/Throat: Mouth: Mucous membranes are moist. Eyes: General: No scleral icterus. Right eye: No discharge. Left eye: No discharge. Pupils: Pupils are equal, round, and reactive to light. Cardiovascular: Rate and Rhythm: Normal rate and regular rhythm. Heart sounds: No murmur heard. No friction rub. No gallop. Pulmonary: Effort: Pulmonary effort is normal. No respiratory distress. Breath sounds: No stridor. No wheezing, rhonchi or rales. Chest: Chest wall: No tenderness. Abdominal: General: There is no distension. Palpations: Abdomen is soft. There is no mass. Tenderness: There is no abdominal tenderness. There is no right CVA tenderness or left CVA tenderness. Musculoskeletal: General: Normal range of motion. Cervical back: Normal range of motion. Neurological: General: No focal deficit present. Mental Status: She is alert and oriented to person, place, and time. Psychiatric: Mood and Affect: Mood normal. Assessment/Plan Diagnoses and all orders for this visit: Mild intermittent asthma without complication Comments: Albuterol as directed Call the office if having more frequent exacerbation. Orders: - albuterol 108 (90 Base) MCG/ACT inhaler; Inhale 2 puffs every 4 (four) hours if needed for wheezing. Seasonal allergies Comments: Cetirizine as directed Avoid any identified trigger. Orders: - cetirizine (ZyrTEC) 10 MG tablet; Take 1 tablet (10 mg) by mouth Once per day. Encounter for medical examination to establish care Comments: Normal cardiopulmonary exam Patient's chart was reviewed and all concerns were addressed Other fatigue Comments: Labs ordered. Patient will be contacted with results. Orders: - TSH W/Reflex to FT4; Future - Comprehensive Metabolic Panel; Future - Vitamin D, 25-Hydroxy, Total, Immunoassay; Future - CBC auto differential; Future Social phobia Comments: Patient would benefit from a few sessions of psychotherapy. Referral was generated. Orders: - Referral to Behavioral Health; Future documented in this encounter Plan of Treatment Scheduled Orders Name Type Priority Associated Diagnoses Orde r Schedule TSH W/Reflex to FT4 Lab Routine Other fatigue Expected: 06/26/2024 (Approximate), Expires: 06/26/2025 Comprehensive Metabolic Panel Lab Routine Other fatigue Expected: 06/26/2024 (Approximate), Expires: 06/26/2025 Vitamin D, 25-Hydroxy, Total, Immunoassay Lab Routine Other fatigue Expected: 06/26/2024 (Approximate), Expires: 06/26/2025 CBC auto differential Lab Routine Other fatigue Expected: 06/26/2024 (Approximate), Expires: 06/26/2025 Scheduled Referrals Name Type Priority Associated Diagnoses Order Schedule Referral to Behavioral Health Outpatient Referral Routine Social phobia Expected: 06/26/2024 (Approximate), Expires: 06/26/2025 documented as of this encounter Visit Diagnoses Diagnosis Mild intermittent asthma without complication- Primary Seasonal allergies Allergic rhinitis, cause unspecified Encounter for medical examination to establish care Other fatigue Social phobia documented in this encounter Additional Health Concerns Assessment Noted Time PHQ-9 Depression Total Score: 3 06/26/19 10:58 AM EST documented as of this encounter Care Teams Unhairing Inspector Relationship Specialty Start Date End Date Emani Ford MD [address] [place] [phone] PCP - General Internal Medicine 06/26/24 documented as of this encounter
[2024-06-26 14:21] LABS: MANUAL DIFF FLAG NO
[2024-06-26 14:24] LABS: Basophils Percent Auto 0.4 % (0-2); Eosinophils Absolute Auto 0.3 X10*3/uL (0.0-0.4); Eosinophils Percent Auto 5.3 % (0-4); Hematocrit 40.9 % (37.0-47.0); Hemoglobin 13.3 g/dl (12.0-16.0); Imm Gran Abs Auto 0.01 X10*3/uL (0.00-0.03); Imm Gran Pct Auto 0.2 % (0.0-0.4); Lymphocytes Absolute Auto 1.2 X10*3/uL (1.2-4.9); Lymphocytes Percent Auto 21.4 % (20-40); Mean Corpuscular HGB Conc 32.5 g/dl (31.0-35.0); Mean Corpuscular Hemoglobin 30.6 pg (27.0-33.0); Mean Platelet Volume 12.2 fL (9.4-12.3); Monocytes Absolute Auto 0.6 X10*3/uL (0.1-1.2); Monocytes Percent Auto 10.1 % (2-11); Neutrophils Absolute Auto 3.4 x10*3/uL (2.0-8.3); Neutrophils Percent Auto 62.6 % (45-73); Platelet Count 159 X10*3/uL (160-400); Red Blood Count 4.35 X10*6/uL (4.20-5.50); Red Cell Distribution Width 11.3 % (11.0-16.0); White Blood Count 5.4 X10*3/uL (4.8-10.8)
[2024-06-26 14:46] LABS: Alanine Aminotransferase 13 U/L (0-31); Albumin Level 4.1 g/dL (3.5-5.0); Anion Gap 10 (12-20); Aspartate Amino Transferase 33 U/L (5-31); Bilirubin Total 0.2 mg/dL (0.0-1.0); Blood Urea Nitrogen 7 mg/dL (9-16); Calcium 9.1 mg/dL (8.4-10.2); Carbon Dioxide 26 mmol/L (22-29); Chloride 106 mmol/L (96-108); Estimated Glomerular Filt Rate > 60; Glucose Random 72 mg/dL (60-115); Potassium 3.9 mmol/L (3.3-5.1); Sodium 138 mmol/L (135-145)
[2024-06-26 15:02] LABS: Alkaline Phosphatase 71 U/L (39-117); TSH reflex Free T4 1.02 uIU/mL (0.32-4.0); Vitamin D 25-OH Total 20.5 ng/mL (>30)
== END 2024-06-26 11:50 | disposition home or self-care (01) ==
LOC: HO.CHCLDS 11:49
PROVIDERS: Visit Provider Internal Medicine
DX: R53.83 Other fatigue (principal)
CPT/HCPCS: 36415; 80053; 82306; 84443; 85025

== ENCOUNTER 2024-07-19 09:03 | Outpatient (REF) | payer MEDICAID, SELFPAY ==
--- NOTE | ~2024-07-19 | US_ITS ---
CLINICAL HISTORY: Transaminitis US abdomen complete Comparison: None Findings: The visualized pancreas is normal. Pancreas is not well seen. The aorta and inferior vena cava are normal caliber. The liver is normal in size and echotexture. There is no intrahepatic bile duct dilatation. The common duct is for mm in diameter. The gallbladder is normal. There is no sonographic Guillen sign. The main portal vein is antegrade. The right kidney is 10.2 cm in length. The left kidney is 10.1 cm in length. Echogenic foci are seen within the interpolar kidneys bilaterally. The spleen is normal. No ascites. IMPRESSION: 1. Echogenic bilateral renal foci, possibly indicating nonobstructing renal calculi. 2. No acute process. This document has been electronically signed by: Rowdy Cole MD on 07/19/2024 15:57:46
--- OUTSIDE RECORDS SUMMARY | 2024-07-19 09:35 | XMS_ITS | Clinical Summary ---
Author Organization [employer] Address [address] [place] [address] 7 [place] [address] Care Team Providers Care Brilliandeer Looper Name Role Phone Emani Ford MD Primary Care Provider [phone]- [phone] Allergies No known active allergies Medications * This document contains information received from the source organization and may not represent a complete record from that organization. albuterol 108 (90 Base) MCG/ACT inhalerIndicatio ns:Mild intermittent asthma without complication Inhale 2 puffs every 4 (four) hours if needed for wheezing. 18 g 3 06/26/19 25 Active cetirizine (ZyrTEC) 10 MG tabletIndication s:Seasonal allergies Take 1 tablet (10 mg) by mouth Once per day. 30 tablet 11 06/26/19 25 026 Active cholecalciferol VITAMIN D (Vitamin D-3) 50 MCG (1999 UT) capsuleIndicatio ns:Vitamin D deficiency Take 1 capsule (50 mcg) by mouth Once per day. 30 capsule 06/27/19 25 026 Active albuterol 108 (90 Base) MCG/ACT inhaler 2 puffs. 08/12/19 20 025 Discontinued(Re order (will not trigger notification to Pharmacy)) Active Problems Problem Noted Date Diagnosed Date Mild intermittent asthma without complication Encounter for medical examination to establish c are 06/26/2024 Encounters * This document contains information received from the source organization and may not represent a complete record from that organization. Date Type Department Care Team Description 06/27/2024 Telephone [facility] [address] [place] [address] Emani Ford MD 06/27/2024 Orders Only [facility] [address] [place] [address] Emani Ford MD Vitamin D deficiency (Primary Dx); Elevated liver enzymes 06/26/2024 10:00 AM EST Office Visit [facility] [address] [place] [address] Emani Ford MD Mild intermittent asthma without complication (Primary Dx); Seasonal allergies; Encounter for medical examination to establish care; Other fatigue; Social phobia 06/26/2024 Travel 06/13/2024 Patient Outreach [facility] [address] [place] [address] Emani Ford MD Pre-visit Planning (SDOH screening negative and Tobacco screening negative) 05/02/[address] [address] Cheo Escobedo MD New patient appt. 04/25/[address] [facility] [address] [place] [address] Cheo Escobedo MD New Patient from Last [...] Procedure Name Priority Date/Time Associated Diagnosis Comments CBC WITH AUTO DIFFERENTIAL Routine 06/26/2024 11:50 AM EST Other fatigue VITAMIN D,25-OH,TOTAL,IA Routine 06/26/2024 11:50 AM EST Other fatigue COMPREHENSIVE METABOLIC PANEL Routine 06/26/2024 11:50 AM EST Other fatigue TSH W/REFLEX TO FT4 Routine 06/26/2024 1 1:50 AM EST Other fatigue ZZZ HISTORICAL HEPATITIS B SURFACE ANTIGEN* Routine 11/26/2021 7:50 AM EDT from Last 3 Months or Most Recently Relevant to Health Maintenance Results * (ABNORMAL) Vitamin D, 25-Hydroxy, Total, Immunoassay (06/26/2024 11:50 AM EST) Vitamin D 25-OH Total 20.5(L) >30 ng/mL [facility] Comment:Health Based Referen ce Values*< 20 ng/mL Mguhhdayh17-28 ng/mL Insufficient> 30 ng/mL Sufficient*Malu STRICKLAND. N Engl J Med. 2007;357:266-280Care must be taken in interpreting Vitamin D results fromdifferent laboratories and methodologies. Published datademonstrated that results from patients undergoinghemodialysis may show a negative bias when tested withvarious automated 25-OH vitamin D assays when compared toLC-MS/MS.When testing samples from patients whose predominant form ofVitamin D is Vitamin D2, such as patients receiving VitaminD2 supplementation, results that are subtherapeutic shouldbe confirmed with another method such as LC-MS/MS. Blood Venous blood specimen / Unknown 06/26/2024 11:50 AM EST 06/26/2024 2:16 PM EST us Emani Ford MD LAB BLOOD ORDERABLES Final Result [facility] [address] [place] [phone] * TSH W/Reflex to FT4 (06/26/2024 11:50 AM EST) TSH reflex Free T4 1.02 0.32 - 4.0 uIU/mL [facility] Blood Venous blood specimen / Unknown 06/26/2024 11:50 AM EST 06/26/2024 2:16 PM EST us Emani Ford MD LAB BLOOD ORDERABLES Final Result [facility] [address] [place], [place] [phone] * (ABNORMAL) CBC auto differential (06/26/2024 11:50 AM EST) White Blood Count 5.4 4.8 - 10.8 X10*3/uL [facility] Red Blood Count 4.35 4.20 - 5.50 X10*6/uL [facility] Hemoglobin 13.3 12.0 - 16.0 g/dl [facility] Hematocrit 40.9 37.0 - 47.0 % [facility] Mean Corpuscular Volume 94.0 80.0 - 98.0 fL [facility] Mean Corpuscular Hemoglobin 30.6 27.0 - 33.0 pg [facility] Mean Corpuscular HGB Conc 32.5 31.0 - 35.0 g/dl [facility] Red Cell Distribution Width 11.3 11.0 - 16.0 % [facility] Platelet Count 159(L) 160 - 400 X10*3/uL [facility] Mean Platelet Volume 12.2 9.4 - 12.3 fL [facility] Neutrophils Percent Auto 62.6 45 - 73 % [facility] Imm Gran Pct Auto 0.2 0.0 - 0.4 % [facility] Lymphocytes Percent Auto 21.4 20 - 40 % [facility] Monocytes Percent Auto 10.1 2 - 11 % [facility] Eosinophils Percent Auto 5.3(H) 0 - 4 % [facility] Basophils Percent Auto 0.4 0 - 2 % [facility] NRBC Pct Auto 0.0 0.0 - 0.2 /100WBC [facility] Neutrophils Absolute Auto 3.4 2.0 - 8.3 x10*3/uL [facility] Imm Gran Abs Auto 0.01 0.00 - 0.03 X10*3/uL [facility] Lymphocytes Absolute Auto 1.2 1.2 - 4.9 X10*3/uL [facility] Monocytes Absolute Auto 0.6 0.1 - 1.2 X10*3/uL [facility] Eosinophils Absolute Auto 0.3 0.0 - 0.4 X10*3/uL [facility] Basophils Absolute Auto 0.0 0.0 - 0.2 X10*3/uL [facility] NRBC Abs Auto 0.000 0.0 - 0.012 X10*3/uL [facility] Blood Venous blood specimen / Unknown 06/26/2024 11:50 AM EST 06/26/2024 2:16 PM EST us Emani Ford MD LAB BLOOD ORDERABLES Final Result [facility] [address] [place] [phone] * (ABNORMAL) Comprehensive Metabolic Panel (06/26/2024 11:50 AM EST) Sodium 138 135 - 145 mmol/L [facility] Potassium 3.9 3.3 - 5.1 mmol/L [facility] Comment:Slight Hemolysis.Int erpret result with caution. Chloride 106 96 - 108 mmol/L [facility] Carbon Dioxide 26 22 - 29 mmol/L [facility] Anion Gap 10(L) 12 - 20 [facility] Urea Nitrogen (BUN) 7(L) 9 - 16 mg/dL [facility] Creatinine, Serum 0.67 0.5 - 1.4 mg/dL [facility] Estimated Glomerular Filt Rate >60 [facility] Comment:Chronic Kidney Disea se: Estimated GFR < 60 mL/min/1.54l7Pjuasw Kidney Disease: Estimated GFR < 15 mL/min/1.73m2 Glucose 72 60 - 115 mg/dL [facility] Calcium 9.1 8.4 - 10.2 mg/dL [facility] Bilirubin, Total 0.2 0.0 - 1.0 mg/dL [facility] Aspartate Amino Transferase 33(H) 5 - 31 U/L [facility] Comment:Slight Hemolysis.Int erpret result with caution. Alanine Aminotransferase 13 0 - 31 U/L [facility] Total Protein 8.0 6.5 - 8.0 g/dL [facility] Albumin Level 4.1 3.5 - 5.0 g/dL [facility] Alkaline Phosphatase 71 39 - 117 U/L [facility] Blood Venous blood specimen / Unknown 06/26/2024 11:50 AM EST 06/26/2024 2:16 PM EST us Emani Ford MD LAB BLOOD ORDERABLES Final Result Performing Organization Address [facility] Co de Phone Number [facility] [address] [place] [address] [phone] * HEPATITIS B SURFACE ANTIGEN* (11/26/2021 7:50 AM EDT) Pathologist [facility] Hepatitis B Surface Antigen Negative Negative [facility] Hepatitis C Antibody Nonreactive Nonreactive [facility] Comment: Antibodies to HCV not detected; does not exclude early acute HCV infection. HIV AB/AG Nonreactive Nonreactive [facility] Comment: HIV-1 p24 Ag and/or [...] detection of this assay. ?? The [employer] Dishwas[employer] Busser HIV Ag/Ab Combo assay result and supplemental assay results should be interpreted in conjunction with the patient's clinical presentation, history and other laboratory results. ??If the results are inconsistent with clinical evidence, additional testing is suggested to confirm the result. 11/26/2021 7:50 AM EDT us Catherine [facility] HISTORICAL/NON ORDERABLE LABS Fi nal Result Performing Organization Address City/[facility]/ZIP Co de Phone Number [facility] [address] [place] [address], from Last 3 Months or Most Recently Relevant to Health Maintenance Insurance [facility] C3 Care Teams Brilliandeer Looper Relationship Specialty Start Date End Date Emani Ford MD [address] [place] [phone] PCP - General Internal Medicine 06/26/24
--- OUTSIDE RECORDS SUMMARY | 2024-07-19 09:35 | XMS_ITS | Encounter Summary ---
Author Organization [employer] Address [address] [facility] 7 [place] [address] Care Team Providers Care Pillow Cleaner Name Role Phone Emani Ford MD Primary Care Provider [phone]- [phone] Encounter Details Date Type Department Care Team [...] documented as of this encounter Care Teams Pillow Cleaner Relationship Specialty Start Date End Date Emani Ford MD [address] [place] [phone] PCP - General Internal Medicine 06/26/24 documented as of this encounter
--- OUTSIDE RECORDS SUMMARY | 2024-07-19 09:35 | XMS_ITS | Encounter Summary ---
Author Organization [employer] Address [address] [facility] [address] [place] [address] Care Team Providers Care Pellet Machine Operator Name Role Phone Emani Ford MD Primary Care Provider [phone]- [phone] Encounter Details Date Type Department Care Team (Late st Contact Info) Description 06/27/2024 Telephone [facility] [address] [place], [place] [phone] Emani Ford MD [address] [place], [place] [phone] Social History Tobacco Use Types Packs/Day Years [...] AM EST documented as of this encounter Miscellaneous Notes * Telephone Encounter - Meme Espinoza RN - 06/27/2024 3:44 PM EST TC placed to pt to inform of below PCP message. RN advised pt of below message. Pt verbalized understanding and denies questions at this time. ----- Message from Emani Ford MD sent at 06/27/2024 3:38 PM EST ----- Please call: 1) low vitamin D. 2000 units a day of vitamin D supplementation will be sent to patient's pharmacy 2) elevated eosinophils which could be related to patient's history of seasonal allergies. She is to start the cetirizine prescribed 3) mild elevation of liver test. We will order hepatitis profile and an ultrasound of the abdomen. documented in this encounter Plan of Treatment Not on file documented as of this encounter Visit Diagnoses Not on filedocumented in this encounter Additional Health Concerns Assessment Noted Time PHQ-9 Depression Total Score: 3 06/26/19 25 10:58 AM EST documented as of this encounter Care Teams Pellet Machine Operator Relationship Specialty Start Date End Date Emani Ford MD [address] [place] [phone] PCP - General Internal Medicine 06/26/24 documented as of this encounter
--- OUTSIDE RECORDS SUMMARY | 2024-07-19 09:35 | XMS_ITS | Encounter Summary ---
Author Organization [facility] Address [address] [place] [address] Care Team Providers Care Facilities Supervisor Name Role Phone Emani Ford MD Primary Care Provider [phone] Reason for Referral * Imaging (Routine) - Authorized Specialty Diagnoses / Procedures Referred By Eder craft Referred To Contact Radiology Diagnoses Elevated liver enzymes Procedures US Abdomen Complete Emani Ford MD [address] [place] [address] Phone: tel: fax: [address] Phone: tel: fax: Referral ID Status Reason Start Date Expiration Date V isits Requested Visits Authorized [id number] Authorized 06/27/2024 06/27/2025 1 1 Encounter Details Date Type Department Care Team (Late st Contact Info) Description 06/27/2024 Orders Only [facility] [address] [place], [place] [phone] Emani Ford MD [address] [place], [place] [phone] Vitamin D deficiency (Primary Dx); Elevated liver enzymes Social History Tobacco Use Types Packs/Day Years [...] as of this encounter Plan of Treatment Scheduled Orders Name Type Priority Associated Diagnoses Orde r Schedule US Abdomen Complete Imaging Routine Elevated liver enzymes Expected: 06/27/2024, Expires: 06/27/2025 Hepatitis A,B,C Profile Lab Routine Elevated liver enzymes Expected: 06/27/2024, Expires: 06/27/2025 documented as of this encounter Visit Diagnoses Diagnosis Vitamin D deficiency- Primary Elevated liver enzymes Other nonspecific abnormal serum enzyme levels documented in this encounter Additional Health Concerns Assessment Noted Time PHQ-9 Depression Total Score: 3 06/26/19 10:58 AM EST documented as of this encounter Care Teams Facilities Supervisor Relationship Specialty Start Date End Date Emani Ford MD [address] [place] [phone] PCP - General Internal Medicine 06/26/24 documented as of this encounter
--- OUTSIDE RECORDS SUMMARY | 2024-07-19 09:35 | XMS_ITS | Encounter Summary ---
Author Organization [employer] Address [address] [place] [address] Care Team Providers Care Magnetic Tape Winder Name Role Phone Emani Ford MD Primary Care Provider [phone]- [phone] Reason for Referral * Consultation (Routine) - Closed Specialty Diagnoses / Procedures Referred By Eder craft Referred To Contact Behavioral Health Diagnoses Social phobia Emani Ford MD [address] [place] [address] Phone: tel: fax: Referral ID Status Reason Start Date Expiration Date V isits Requested Visits Authorized [id number] Closed Specialty Services Required 06/26/2024 06/26/2025 1 1 Reason for Visit * Reason Comments Establish Care Encounter Details Date Type Department Care Team ([facility] Contact Info) Description 06/26/2024 10:00 AM EST Office Visit [facility] [address] [place] [address] Emani Ford MD [address] [place] [address] Mild intermittent asthma without complication (Primary Dx); [...] and it was already discussed with her software quality engineer who recommends to wait a little [...] in this encounter Plan of Treatment Scheduled Referrals Name Type Priority Associated Diagnoses Order Schedule Referral to Behavioral Health Outpatient Referral Routine Social phobia Expected: 06/26/2024 (Approximate), Expires: 06/26/2025 documented as of this encounter Procedures Procedure Name Priority Date/Time Associated Diagnosis Comments VITAMIN D,25-OH,TOTAL,IA Routine 06/26/2024 11:50 AM EST Other fatigue TSH W/REFLEX TO FT4 Routine 06/26/2024 1 1:50 AM EST Other fatigue CBC WITH AUTO DIFFERENTIAL Routine 06/26/2024 11:50 AM EST Other fatigue COMPREHENSIVE METABOLIC PANEL Routine 06/26/2024 11:50 AM EST Other fatigue documented in this encounter Results * (ABNORMAL) CBC auto differential (06/26/2024 11:50 AM EST) White Blood Count 5.4 4.8 - 10.8 X10*3/uL [facility] Red Blood Count 4.35 4.20 - 5.50 X10*6/uL [facility] Hemoglobin 13.3 12.0 - 16.0 g/dl [facility] Hematocrit 40.9 37.0 - 47.0 % [facility] Mean Corpuscular Volume 94.0 80.0 - 98.0 fL [facility] Mean Corpuscular Hemoglobin 30.6 27.0 - 33.0 pg [facility] Mean Corpuscular HGB Conc 32.5 31.0 - 35.0 g/dl [facility] Red Cell Distribution Width 11.3 11.0 - 16.0 % [facility] Platelet Count 159(L) 160 - 400 X10*3/uL [facility] Mean Platelet Volume 12.2 9.4 - 12.3 fL [facility] Neutrophils Percent Auto 62.6 45 - 73 % [facility] Imm Gran Pct Auto 0.2 0.0 - 0.4 % [facility] Lymphocytes Percent Auto 21.4 20 - 40 % [facility] Monocytes Percent Auto 10.1 2 - 11 % [facility] Eosinophils Percent Auto 5.3(H) 0 - 4 % [facility] Basophils Percent Auto 0.4 0 - 2 % [facility] NRBC Pct Auto 0.0 0.0 - 0.2 /100WBC [facility] Neutrophils Absolute Auto 3.4 2.0 - 8.3 x10*3/uL [facility] Imm Gran Abs Auto 0.01 0.00 - 0.03 X10*3/uL [facility] Lymphocytes Absolute Auto 1.2 1.2 - 4.9 X10*3/uL [facility] Monocytes Absolute Auto 0.6 0.1 - 1.2 X10*3/uL [facility] Eosinophils Absolute Auto 0.3 0.0 - 0.4 X10*3/uL [facility] Basophils Absolute Auto 0.0 0.0 - 0.2 X10*3/uL [facility] NRBC Abs Auto 0.000 0.0 - 0.012 X10*3/uL [facility] Blood Venous blood specimen / Unknown 06/26/2024 11:50 AM EST 06/26/2024 2:16 PM EST Emani Ford MD LAB BLOOD ORDERABLES Final Result [facility] [address] [place] [phone] * (ABNORMAL) Vitamin D, 25-Hydroxy, Total, Immunoassay (06/26/2024 11:50 AM EST) Vitamin D 25-OH Total 20.5(L) >30 ng/mL [facility] Comment:Health Based Referen ce Values*< 20 ng/mL [id number] ng/mL Insufficient> 30 ng/mL Sufficient*Malu STRICKLAND. N [...] Ford MD LAB BLOOD ORDERABLES Final Result [facility] [address] [place] [address] [phone] * (ABNORMAL) Comprehensive Metabolic Panel (06/26/2024 11:50 AM EST) Sodium 138 135 - 145 mmol/L [facility] Potassium 3.9 3.3 - 5.1 mmol/L [facility] Comment:Slight Hemolysis.Int erpret result with caution. Chloride 106 96 - 108 mmol/L [facility] Carbon Dioxide 26 22 - 29 mmol/L [facility] Anion Gap 10(L) 12 - 20 [facility] Urea Nitrogen (BUN) 7(L) 9 - 16 mg/dL [facility] Creatinine, Serum 0.67 0.5 - 1.4 mg/dL [facility] Estimated Glomerular Filt Rate >60 [facility] Comment:Chronic Kidney Disea se: Estimated GFR < 60 mL/min/1.87v0Ooxkvs Kidney Disease: Estimated GFR < 15 mL/min/1.73m2 Glucose 72 60 - 115 mg/dL [facility] Calcium 9.1 8.4 - 10.2 mg/dL [facility] Bilirubin, Total 0.2 0.0 - 1.0 mg/dL [facility] Aspartate Amino Transferase 33(H) 5 - 31 U/L [facility] Comment:Slight Hemolysis.Int erpret result with caution. Alanine Aminotransferase 13 0 - 31 U/L [facility] Total Protein 8.0 6.5 - 8.0 g/dL [facility] Albumin Level 4.1 3.5 - 5.0 g/dL [facility] Alkaline Phosphatase 71 39 - 117 U/L [facility] Blood Venous blood specimen / Unknown 06/26/2024 11:50 AM EST 06/26/2024 2:16 PM EST us Emani Ford MD LAB BLOOD ORDERABLES Final Result Performing Organization Address [facility] Co de Phone Number [facility] [address] [place] [address] [phone] * TSH W/Reflex to FT4 (06/26/2024 11:50 AM EST) TSH reflex Free T4 1.02 0.32 - 4.0 uIU/mL [facility] Blood Venous blood specimen / Unknown 06/26/2024 11:50 AM EST 06/26/2024 2:16 PM EST us Emani Ford MD LAB BLOOD ORDERABLES Final Result Performing Organization Address [facility] de Phone Number [facility] [address] [place] [phone] documented in this encounter Visit Diagnoses Diagnosis Mild intermittent asthma without complication- Primary Seasonal allergies Allergic rhinitis, cause unspecified Encounter for medical examination to establish care Other fatigue Social phobia documented in this encounter Additional Health Concerns Assessment Noted Time PHQ-9 Depression Total Score: 3 06/26/19 25 10:58 AM EST documented as of this encounter Care Teams Magnetic Tape Winder Relationship Specialty Start Date End Date Emani Ford MD [address] [place] [phone] PCP - General Internal Medicine 06/26/24 documented as of this encounter
== END 2024-07-19 09:04 | disposition home or self-care (01) ==
LOC: HO.US 09:03
PROVIDERS: PCP Internal Medicine; Visit Provider Internal Medicine
DX: R74.8 Abnormal levels of other serum enzymes (principal)
CPT/HCPCS: 76700

== ENCOUNTER → 2024-07-19 09:05 | Outpatient (BNV) | payer MEDICAID, SELFPAY | PROVIDERS: PCP Internal Medicine; Visit Provider Radiology Diagnostic Radiology | DX: R74.01 Elevation of levels of liver transaminase levels (principal) | CPT/HCPCS: 76700 ==

== ENCOUNTER 2025-02-18 08:58 | Outpatient (REF) | payer MEDICAID, SELFPAY ==
--- OUTSIDE RECORDS SUMMARY | 2025-02-18 09:39 | XMS_ITS | Clinical Summary ---
Author Organization [employer] Address [address] [facility] [address] [place] [address] Care Team Providers Care Boot Trimmer Name Role Phone Emani Ford MD Primary Care Provider Allergies No known active allergies Medications * This document contains information received from the source organization and may not represent a complete record from that organization. albuterol 108 (90 Base) MCG/ACT inhalerIndication s:Mild intermittent asthma without complication Inhale 2 puffs every 4 (four) hours if needed for wheezing. 18 g 3 5 Active cetirizine (ZyrTEC) 10 MG tabletIndications :Seasonal allergies Take 1 tablet (10 mg) by mouth Once per day. 30 tablet 11 5 06/26/19 26 Active cholecalciferol VITAMIN D (Vitamin D-3) 50 MCG (1999 UT) capsuleIndication s:Vitamin D deficiency Take 1 capsule (50 mcg) by mouth Once per day. 30 capsule 11 5 06/27/19 26 Active busPIRone (Buspar) 10 MG tabletIndications :Agoraphobia with panic attacks Take 1 tablet (10 mg) by mouth 2 times daily. 60 tablet 2 5 03/27/20 25 Active hydrOXYzine HCl (Atarax) 25 MG tabletIndications :Anxiety,Claustro phobia Take 1 tablet (25 mg) by mouth if needed in the morning, at noon, and at bedtime for itching. 90 tablet 5 03/12/20 25 Active econazole nitrate 1 % creamIndications: Intertrigo Apply topically Once per day. 30 g 5 09/21/20 25 Active Problems Problem Noted Date Diagnosed Date Claustrophobia 02/10/2025 Precordial pain 07/22/2024 Assessment & Plan (07/22/2024 10:04 AM EDT): Rapid viral tests are NEG. Her EKG does not show evidence of ischemic events or other changes supporting a PE and her Oxygenation is normal. It seems to be mostly related to costochondritis, patient will take Tylenol as needed Given history of asthma and mild shortness of breath, I will order Medrol pack, advised to take it with main meal and hold if she has severe GI side effects, cannot sleep or has anxiety. 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 Pt reports it's affecting her interpersonal relationships and interactions with the outside world as patient is missing out from enjoying life at its fullest; for a period of 18+ mo, for most or all symptoms in the context of becoming a mother six years ago and not being able to share her emotions with others in the past. Trinidad endorsed anxiety and reports not being able to manage symptoms on her own. Difficulty sharing her emotions with others have been stopping patient to seek out for help. Pt will be referred out for OP individual therapy/telehealth sessions and medication management with [facility] provider, Lazaro Medley. clinician will provide follow-up BE and assess sxs and services. Pt will practice coping strategies discussed during session at home. Encounters * This document contains information received from the source organization and may not represent a complete record from that organization. Date Type Department Care Team Description 02/17/2025 Telephone [facility] MEDICINE [address] [place] [address] Emani Ford MD TB Test 02/10/2025 3:15 PM EDT Telemedicine [facility] MED & PEDS [address] [place] [address] Emani Ford MD Anxiety (Primary Dx); Mild intermittent asthma without complication; Claustrophobia 02/10/2025 Travel 01/30/2025 Travel 01/20/2025 Telephone [facility] [address] [place] [address] Emani Ford MD No Show 01/18/2025 Travel 01/17/2025 Telephone [facility] [address] [place] [address] Emani Ford MD Nurse Triage 12/27/2024 3:30 PM EDT Office Visit [facility] [address] [place] [address] Emani Ford MD Intertrigo (Primary Dx); Agoraphobia with panic attacks 12/27/2024 Travel 12/17/2024 Telephone [facility] [address] [place] [address] Emani Ford MD Medication Question 12/17/2024 Telephone [facility] [address] [place] [address] Emani Ford MD Nurse Triage from Last 3 Months Family History Medical [...] Answer Date Recorded Patient Health Questionnaire-9 Score 6 02/05/2025 Patient Health Questionnaire-9 Score 6 02/05/2025 Last PHQ-9: Questionnaire Data Not on file 1 Housing Stability Answer Date Recorded What is [...] Answer Date Recorded Patient Health Questionnaire-2 Score 2 02/05/2025 Internet Access Answer Date Recorded Internet Access [...] Sign Reading Time Taken Comments Blood Pressure 117/85 12/27/2024 3:38 PM EDT Pulse 73 12/27/2024 3:38 PM EDT Temperature 36.4 C (97.6 F) 12/27/2024 3:38 PM EDT Respiratory Rate 20 12/27/2024 3:38 PM EDT Oxygen Saturation 99% 12/27/2024 3:38 PM EDT Inhaled Oxygen Concentration - - Weight 59.9 kg (132 lb) 12/27/2024 3:38 PM EDT Height 159 cm (5' 2.6 ) 12/27/2024 3:38 PM EDT Body Mass Index 23.68 12/27/2024 3:38 PM EDT Plan of Treatment Health Maintenance Due Date Last Done Comments Family Planning (PISQ) 2014 Pneumococcal Vaccine: Pediatrics (0 to 5 Years) and At-Risk Patients (6 to 49) Years (1 of 2 - PCV) 2018 Pap Smear 12/16/2024 12/16/2021 COVID-19 Vaccine (3 - season) 2025 10/22/2020, 09/24/2020 Influenza Vaccine (#1) 2025 5, 04/26/2012, 04/14/2011, Additional history exists Alcohol/Substance Use Screening 06/26/2025 06/26/2024 SDOH Screening 06/26/2025 06/26/2024 Disability Screening 01/18/2026 01/18/2025 Depression Screening 02/05/2026 02/05/2025, 02/06/20 25 Tobacco Screening 02/10/2026 02/10/2025 DTaP/Tdap/Td Vaccines (8 - Td or Tdap) [...] Additional history exists HPV Vaccines Completed 04/26/2012, 1212/2010, 03/25/2010 Meningococcal Vaccine Completed 05/04/2015, 011 Hepatitis A Vaccines Completed 07/25/2016, 05/04/20 15 HIV Screening Completed 11/26/2021 Hepatitis C Screening Completed 11/26/2021 Meningococcal B Vaccine Aged Out No l onger eligible based on patient's age to complete this topic RSV under 20 months Aged Out No longe r eligible based on patient's age to complete this topic Rotavirus Vaccines Aged Out No longer eligible based on patient's age to complete this topic Procedures Procedure Name Priority Date/Time Associated Diagnosis Comments HM PAP/HPV Routine 12/16/2021 ZZZ HISTORICAL HEPATITIS B SURFACE ANTIGEN* Routine 11/26/2021 7:50 AM EDT from Last 3 Months or Most Recently Relevant to Health Maintenance Results * HM PAP/HPV (12/16/2021) Pap Smear 1. NILM 1. NILM us Historical Provider MD HEALTH MAINTENANCE Final Result * HEPATITIS B SURFACE ANTIGEN* (11/26/2021 7:50 AM EDT) Hepatitis B Surface Antigen Negative Negative [facility] Hepatitis C Antibody Nonreactive Nonreactive [facility] Comment: Antibodies to HCV not detected; does not exclude early acute HCV infection. HIV AB/AG Nonreactive Nonreactive [facility] Comment: HIV-1 p24 Ag and/or HIV-1/HIV-2 Ab not detected. A test result that is nonreactive does not exclude the possibility of exposure to or infection with HIV-1 and/or HIV-2. Nonreactive results in this assay for individuals with prior exposure to HIV-1 and/or HIV-2 may be due to antigen and antibody levels that are below the limit of detection of this assay. The [employer] Executive Manager HIV Ag/Ab Combo assay result and supplemental assay results should be interpreted in conjunction with the patient's clinical presentation, history and other laboratory results. If the results are inconsistent with clinical evidence, additional testing is suggested to confirm the result. 11/26/2021 7:50 AM EDT Catherine Izaguirre HISTORICAL/NON ORDERABLE LABS Fi nal Result [facility] [address] from Last 3 Months or Most Recently Relevant to Health Maintenance Insurance [facility] C3 Care Teams Boot Trimmer Relationship Specialty Start Date End Date Emani Ford MD [address] [place] [id number] PCP - General Internal Medicine 06/26/24
--- OUTSIDE RECORDS SUMMARY | 2025-02-18 09:39 | XMS_ITS | Encounter Summary ---
Author Organization [employer] Address [address] [facility] 7t [place] [address] Care Team Providers Care Pest Control Service Technician Name Role Phone Emani Ford MD Primary Care Provider Reason for Visit * Reason Onset Date Comments TB Test 02/17/2025 Encounter Details Date Type Department Care Team (Late st Contact Info) Description 02/17/2025 Telephone [facility] MEDICINE [address] [place] [address] Emani Ford MD [address] [place], [place] [phone] TB Test Social History Tobacco Use Types Packs/Day Years [...] encounter Miscellaneous Notes * Telephone Encounter - Marimar Sánchez RN - 02/17/2025 2:50 PM EDT TC to pt to assess for symptoms. Pt denies symptoms of fever, cough, weight loss, insomnia, blood in sputum. Denies known contacts with individuals with TB. Advised of test ordered and advised of locations and hours of testing sites. Pt verbalized understanding and agreement with plan. * Telephone Encounter - Andrea Dailey - 02/17/2025 1:53 PM EDT Tc from pt requesting a TB test for work. If any questions you can contact pt at [phone]. documented in this encounter Plan of Treatment Scheduled Orders Name Type Priority Associated Diagnoses Orde r Schedule T-SPOT .TB Lab Routine Encounter for medical examination to establish care Expected: 02/17/2025 (Approximate), Expires: 02/17/2026 documented as of this encounter Visit Diagnoses Diagnosis Encounter for medical examination to establish care documented in this encounter Additional Health Concerns Assessment Noted Time PHQ-9 Depression Total Score: 6 02/06/20 1:04 PM EDT documented as of this encounter Care Teams Pest Control Service Technician Relationship Specialty Start Date End Date Emani Ford MD [address] [place] [id number] PCP - General Internal Medicine 06/26/24 documented as of this encounter
[2025-02-21 07:07] LABS: TS Negative Control Passed; TS Panel A 0; TS Panel B 0; TS Positive Control Passed; TSpotTB Negative (Negative)
== END 2025-02-18 08:59 | disposition home or self-care (01) ==
LOC: HO.CHCLDS 08:58
PROVIDERS: Visit Provider Internal Medicine
DX: Z11.1 Encounter for screening for respiratory tuberculosis (principal)
CPT/HCPCS: 36415; 86481

== ENCOUNTER 2025-03-21 09:30 | Outpatient (AMB) | payer MEDICAID, SELFPAY ==
--- NOTE | 2025-03-21 09:31 | MHC.OFFVIS ---
Vital Signs 03/21/25 09:38 Height 5 ft 2 in Weight 126 lb BMI 23.0 BP 110/70 Intake Visit Reasons: problem with Nexplanon Bung Dropper: Bung Dropper Present (Genet) Accompanied by: Self / Same As Patient Allergies animal dander (ANIMAL DANDER) Allergy (Unknown, Verified 03/21/25 09:38) SNEEZING SEASONAL ALLERGIES Allergy (Unknown, Uncoded 01/15/24 14:44) SNEEZING Medication List - Last Reconciled 03/21/25 by Catherine Izaguirre CNM etonogestrel (Nexplanon) subdermal Is last menstrual period known: Yes Last menstrual period: 02/07/25 Post menopausal: No Patient : No HPI HPI problem with Nexplanon: Details: Patient has her 2nd Nexplanon in it has been in for about a year and she has been feeling kind of cramping at her arm where the Nexplanon is then she is contemplating taking it out. She has had Depo in the past then she had an IUD she developed ovarian cysts with the IUD she has 2 children and she also had a with a miscarriage. She has been on control often on since she was 18 with the exception of the times she went off and got . She is contemplating taking this out and not having anything a letting her body go back to normal right now with the Nexplanon she gets long kind of light periods that are kind of a blackish brownish discharge to start and then some regular bloody flow and then trickling off again. When she was not on any method at all she would get 4-5 day long periods and they were not bad she is not sure what she would do if she contemplated becoming sexually active again but we discussed condoms for sure and she said she might contemplate pills if she needed them. Right now she is not with anybody so it is not an issue but she is aware of the potential and we also discussed increased libido midcycle and the changes that she will experience when she goes off hormonal control. She is interested in removal. She is currently unemployed but looking for a job. She is due for annual exam soon. [facility] Medical History Pelvic pain Presence of 52 mg levonorgestrel-releasing intrauterine device (IUD) Asthma Surgical History History of appendectomy Family History Maternal Aunt Uterine cancer Social History Alcohol intake: never Patient Tobacco Use Status: Never used Tobacco Female Reproductive History Menstrual Age of Menarche: 10 Duration of menses: other (Entire month) Date of last menstrual period: 02/07/25 control method: implanted (Nexplanon) Total pregnancies: 3 Full term: 2 Date of last pap smear: 12/16/21 (Negative pap smear) History of abnormal pap smear: No Physical Exam Exam Exam: Left arm palpated Nexplanon is easily palpable in correct site left arm appears intact. Can not find any obvious indication why she would feel more cramping in that arm. Vital Signs: Last Vital Signs BP 110/70 03/21/25 09:38 BMI result Body Mass Index 23.0 Assessment & Plan Assessment & Plan (1) Cervical cancer screening: Comment: first pap 12/16/21= negative Code(s): Z12.4 - Encounter for screening for malignant neoplasm of cervix Category: Medical (2) Nexplanon in place: Comment: This is her 2nd 1, appears intact easily palpable left arm. She would like it removed gets arm cramps we will use condoms at the very least Code(s): Z97.5 - Presence of (intrauterine) contraceptive device Category: Social Hx Plan Patient has her 2nd Nexplanon in it has been in for about a year and she has been feeling kind of cramping at her arm where the Nexplanon is then she is contemplating taking it out. She has had Depo in the past then she had an IUD she developed ovarian cysts with the IUD she has 2 children and she also had a with a miscarriage. She has been on control often on since she was 18 with the exception of the times she went off and got . She is contemplating taking this out and not having anything a letting her body go back to normal right now with the Nexplanon she gets long kind of light periods that are kind of a blackish brownish discharge to start and then some regular bloody flow and then trickling off again. When she was not on any method at all she would get 4-5 day long periods and they were not bad she is not sure what she would do if she contemplated becoming sexually active again but we discussed condoms for sure and she said she might contemplate pills if she needed them. Right now she is not with anybody so it is not an issue but she is aware of the potential and we also discussed increased libido midcycle and the changes that she will experience when she goes off hormonal control. She is interested in removal. She is currently unemployed but looking for a job. She is due for annual exam soon. She would like the Nexplanon out soon we will exchange her annual exam appointment for the Nexplanon removal and reschedule the annual Coding Level of Care Code Est Pt Level 3 (20483) Diagnoses Cervical cancer screening Z12.[address] Z97.5
[2025-03-21 09:38] VITALS: BP 110/70; BMI 23.0
--- OUTSIDE RECORDS SUMMARY | 2025-03-21 10:29 | XMS_ITS | Encounter Summary ---
Author Organization [employer] Address [address] [facility] 7t [place] [address] Care Team Providers Care Kiln Furniture Saw Tender Name Role Phone Emani Ford MD Primary Care Provider Encounter Details Date Type Department Care Team ([facility] st Contact Info) Description 02/21/2025 Results Follow-Up [facility] PEDS [address] [place] [address] Emani Ford MD [address] [place] [address] T-SPOT .TB Social History Tobacco Use Types Packs/Day Years [...] documented as of this encounter Care Teams Kiln Furniture Saw Tender Relationship Specialty Start Date End Date Emani Ford MD [address] [place] [id number] PCP - General Internal Medicine 06/26/24 documented as of this encounter
--- OUTSIDE RECORDS SUMMARY | 2025-03-21 10:30 | XMS_ITS | Clinical Summary ---
Author Organization [employer] Address [address] [facility] 7t [place] [address] Care Team Providers Care Electrical Apprentice Name Role Phone Emani Ford MD Primary [...] at bedtime for itching. 90 tablet 5 Active Active Problems Problem Noted Date Diagnosed Date [...] individual therapy/telehealth sessions and medication management with [facility] provider, Lazaro Medley. clinician will provide follow-up BE and assess sxs and services. Pt will practice coping strategies discussed during session at home. Encounters * This document contains information received from the source organization and may not represent a complete record from that organization. Date Type Department Care Team Description 02/21/2025 Results Follow-Up [facility] MED & PEDS [address] [place] [address] Emani Ford MD T-SPOT .TB 02/17/[address] [facility] MEDICINE [address] [place], [place] [phone] Emani Ford MD TB Test 02/10/2025 3:15 PM EDT Telemedicine [facility] MED & PEDS [address] [place] [address] Emani Ford MD Anxiety (Primary Dx); Mild intermittent asthma without complication; Claustrophobia 02/10/2025 Travel 01/30/2025 Travel 01/20/2025 Telephone [facility] MED [facility] PEDS [address] [place] [address] Emani Ford MD No Show 01/18/2025 Travel 01/17/2025 Telephone [facility] MED [facility] PED[facility] [address] [place] [address] Emani Ford MD Nurse Triage 12/27/2024 3:30 PM EDT Office Visit [facility] PED[facility] [address] [place] [address] Emani Ford MD Intertrigo (Primary Dx); Agoraphobia with panic attacks 12/27/2024 Travel from Last 3 Months Family History Medical [...] Additional history exists HPV Vaccines Completed 04/26/2012, 12/12/2010, 03/25/2010 Meningococcal Vaccine Completed 05/04/2015, 011 Hepatitis [...] Procedure Name Priority Date/Time Associated Diagnosis Comments T-SPOT(R).TB Routine 02/18/2025 9:04 AM EDT Encounter for medical examination to establish care HM PAP/HPV Routine 12/16/2021 ZZZ HISTORICAL HEPATITIS B SURFACE ANTIGEN* Routine 11/26/2021 7:50 AM EDT from Last 3 Months or Most Recently Relevant to Health Maintenance Results * T-SPOT??.TB (02/18/2025 9:04 AM EDT) T Spot TB Negative Negative [facility] Comment:A negative test resu lt does not exclude the possibilityof exposure to or infection with Mycobacteriumtuberculosis (M. tuberculosis). Patients with recentexposure to TB infected individuals exhibiting anegative T-SPOT.TB result should be considered forretesting within 6 weeks or if other relevant clinicalsymptoms indicate. Results from T-SPOT.TB testing mustbe used in conjunction with each individual'sepidemiological history, current medical status,and results of other diagnostic evaluations.The T-SPOT.TB test is qualitative and results arereported as positive, borderline, or negative, giventhat the test controls perform as expected. In linewith the Centers for Disease Control and Prevention's2010 recommendation to report quantitative measurementsalongside the qualitative result, the laboratoryprovides spot counts for informational purposes only.The T-SPOT.TB test should not be interpreted as aquantitative test. TS PANEL A 0 [facility] TS PANEL B 0 [facility] Negative Control Passed [facility] Positive Control Passed [facility] Comment:For additional infor matjames, please refer [email or web address]/faq/[email or web address](This link is being provided for informational/educational purposes only.)THIS TEST WAS PERFORMED AT:[facility]/[id number] [place] [address]RPNTOOKAUGUSTIN CRAIG MD,PHD 02/18/2025 9:04 AM EDT 02/18/2025 1:47 PM EDT us Emani Ford MD LAB BLOOD ORDERABLES Final Result [facility] [address] [place] [address] [phone] * HM PAP/HPV (12/16/2021) Pap Smear 1. NILM 1. NILM Historical Provider HEALTH MAINTENANCE Final Result * HEPATITIS B SURFACE ANTIGEN* (11/26/2021 7:50 AM EDT) Hepatitis B Surface Antigen Negative Negative [facility] Hepatitis C Antibody Nonreactive Nonreactive [facility] Comment: Antibodies to HCV not detected; does not exclude early acute HCV infection. HIV AB/AG Nonreactive Nonreactive [facility] Comment: HIV-1 p24 Ag and/or [...] of detection of this assay. The [employer] Auditing Clerk HIV Ag/Ab Combo assay result and supplemental assay results should be interpreted in conjunction with the patient's clinical presentation, history and other laboratory results. If the results are inconsistent with clinical evidence, additional testing is suggested to confirm the result. 11/26/2021 7:50 AM EDT Catherine [place] HISTORICAL/NON ORDERABLE LABS Fi nal Result [facility] [address] from Last 3 Months or Most Recently Relevant to Health Maintenance Insurance * Guarantor: Trinidad Horn Account Type Relation to Patient Date of Phone Billing Address Personal/Family Self [address] [facility] [address] [place] [address] [facility] C3 Care Teams Electrical Apprentice Relationship Specialty Start Date End Date Emani Ford MD [address] [place] [id number] PCP - General Internal Medicine 06/26/24
== END 2025-03-21 10:12 | disposition home or self-care (01) ==
LOC: HO.HWS 09:30
PROVIDERS: PCP Internal Medicine; Visit Provider Advanced Practice Midwife
DX: Z12.4 Encounter for screening for malignant neoplasm of cervix (principal); Z97.5 Presence of (intrauterine) contraceptive device
CPT/HCPCS: 99213

== ENCOUNTER → 2025-03-21 09:30 | Outpatient (BNVA) | payer MEDICAID, SELFPAY | PROVIDERS: PCP Internal Medicine; Visit Provider Advanced Practice Midwife | DX: Z30.46 Encounter for surveillance of implantable subdermal contraceptive (principal) | CPT/HCPCS: 99212 ==

== ENCOUNTER 2025-04-21 14:25 | Outpatient (AMB) | payer MEDICAID, SELFPAY ==
--- NOTE | 2025-04-21 14:29 | MHC.OFFVIS ---
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 She is very certain she wants it removed she is no longer with anybody she still talks with the father of her children who is a father to them and helps her out and is caring for them right now. She is sure that she would use condoms she also has an appointment with Lenore PAULINO at the [facility] because she wants to talk about getting her tubes tied she has spoken with provider's before who have told her that she is too young to get her tubes tied that she would end up regretting it she has 2 children ages almost 3 and 6 and she is 25 years old.. She says she has been on control since she was 16 ( except for the pregnancies) [facility] Medical History Pelvic pain Presence of 52 mg levonorgestrel-releasing intrauterine device (IUD) Asthma Surgical History History of appendectomy Family History Maternal Aunt Uterine cancer Social History Alcohol intake: never Patient Tobacco Use Status: Never used Tobacco Patient : No Female Reproductive History Menstrual Age of Menarche: 10 Date of last menstrual period: 04/07/25 control method: implanted (Nexplanon) Physical Exam Vital Signs: Last Vital Signs BP 110/62 04/21/25 14:30 BMI result Body Mass Index 23.0 Office Procedures Contraception Insert/Removal Details Details: Nexplanon Remova Procedure The patient was placed in a supine position with her non dominant hand resting under her head. The insertion site was located: 8-10cm from the medial epicondyle notch of the humerus, posterior to the sulcus, between the triceps and biceps muscle. The area of the previous implant was identified and the distal tip located. This area was cleansed with an alcohol prep and 2 ml of 2% Lidocaine on a 25 gauge needle and syringe was utilized for adequate anesthesia to the insertion site. After ascertaining adequate anesthesia, the area was prepped with Betadine solution. The skin over the distal tip was incised with a #11 blade scalpel and the capsule was located and entered freeing the implant from the canal. The implant was removed with a gentle tug using a mosquito clamp and removed intact. Direct pressure was applied to the insertion site for hemostasis, minimal bleeding was observed. Steri strips, Tegaderm covering, gauze pads, and Roma wrap dressing were secured with paper tape. The implant was palpable underneath the skin by myself and the patient. The patient tolerated the procedure well and left the office in good condition. 35512 - Removal Assessment & Plan Assessment & Plan (1) control counseling: Comment: Wants to switch back to the Nexplanon discussed insertion of the Nexplanon 1st and very soon after the Mirena.; 04/21/2025 now she is at the removal of her 2nd Nexplanon, she is very certain and is considering tubal ligation and at the very least condoms if she becomes active again. Discussed the very real issue of regret after tubal ligation at a young age and discussed again that there are other options she can consider this discussion took place before removal of the Nexplanon. Currently plans abstinence. Code(s): Z30.09 - Encounter for other general counseling and advice on contraception Category: Medical (2) Nexplanon in place: Comment: This is her 2nd 1, appears intact easily palpable left arm. She would like it removed gets arm cramps we will use condoms at the very least. 04/21/25, 2nd Nexplanon removed after counseling. patient planning abstinence and condoms at the very least but also is planning to discuss tubal ligation with CNM at the [facility] discussed the very real issue of regret at this age. Code(s): Z97.5 - Presence of (intrauterine) contraceptive device Category: Social Hx Plan Discussed alternatives for control including condoms OCPs and their analogs also discussed Mirena she has as had it in the past and blamed it for ovarian cysts. Discussed that they can happen regardless of presence of Mirena.. Discussed the very real issue of regret with tubal ligation at her age . The Nexplanon was removed without any difficulty and Steri-Strips were placed and direct pressure was held on site for several minutes until bleeding subsided and patient was given a pressure dressing and it was wrapped in Roma the patient is to keep it in place for several hours this evening and keep the Tegaderm in place to prevent infection for the next 3 days if there are any signs of bleeding or infection patient is to call. RTC for annual and PRN and for any control.. Patient is very certain and plans abstinence for now and condoms at the very least. Orders: Orders AMB Nexplanon/Implanon Insertion - Patient Supply Today Z30.09 - Encounter for other general counseling and advice on contraception, Z97.5 - Presence of (intrauterine) contraceptive device Coding Level of Care Code Est Pt Level 3 (35401) Diagnoses control counseling Z30. Nexplanon in place Z97.5 CPT Codes Details - Contraception: 74344 - Removal ([id number])
[2025-04-21 14:30] VITALS: BP 110/62; BMI 23.0
--- OUTSIDE RECORDS SUMMARY | 2025-04-21 20:47 | XMS_ITS | Encounter Summary ---
Author Organization [employer] Address [address] [facility] 7[address] [place] [address] Care Team Providers Care Engineering Drawings Checker Name Role Phone Emani Ford MD Primary Care Provider [phone] Encounter Details Date Type Department Care Team ([facility] st Contact Info) Description 02/21/2025 Results Follow-Up [facility] MED & PEDS [address] [place] [address] Emani Ford MD [address] [place] [address] T-SPOT .TB Social History Tobacco Use Types [...] as of this encounter Plan of Treatment Upcoming Encounters Date Type Department Care Team (Late st Contact Info) Description 04/23/2025 10:00 AM EST Office Visit [facility] MEDICINE [address] [place] [address] Jodee Navarro CNM [address] [place] [address] documented as of this encounter Visit Diagnoses Not on filedocumented in this encounter Additional Health Concerns Assessment Noted Time PHQ-9 Depression Total Score: 6 02/06/20 1:04 PM EDT documented as of this encounter Care Teams Engineering Drawings Checker Relationship Specialty Start Date End Date Emani Ford MD [address] [place] [address] PCP - General Internal Medicine 06/26/24 documented as of this encounter
--- OUTSIDE RECORDS SUMMARY | 2025-04-21 20:47 | XMS_ITS | Encounter Summary ---
Author Organization [employer] Address [address] [facility] 7 [place] [address] Care Team Providers Care Plant Wrapper Name Role Phone Emani Ford MD Primary Care Provider Reason for Visit * Reason Onset Date Comments Referral 04/17/2025 Encounter Details Date Type Department Care Team ([facility] Contact Info) Description 04/17/2025 Telephone [facility] CH[facility] MED & PEDS [address] [place] [address] Emani Ford MD [address] [place] [address] Referral Social History Tobacco Use Types Packs/Day Years [...] encounter Miscellaneous Notes * Telephone Encounter - Lesly Seay RN - 04/17/2025 10:38 AM EST Called pt regarding questions about control, spoke to pt. Pt currently has the nexplenon implant but is having it taken out Monday due to pain and cramping near the site. Pt states has tried every kind of BC available and non work for her. Pt requesting appointment to discuss any options or referral for Tubal. Given appointment with Haven Navarro in [facility] 04/23 at 10:00. Reminded pt that the appointment is in the [facility]. Pt understands and agrees with plan. * Telephone Encounter - Sid Cabrera - 04/17/2025 9:09 AM EST Tc from pt stating she is having control removed on Monday and she has tried every control. Pt is requesting to be referred for tubal ligation Contact pt at [phone] documented in this encounter Plan of Treatment Upcoming Encounters Date Type Department Care Team (Late st Contact Info) Description 04/23/2025 10:00 AM EST Office Visit [facility] MEDICINE [address] [place] [address] Jodee Navarro CNM [address] [place] [address] documented as of this encounter Visit Diagnoses Not on filedocumented in this encounter Additional Health Concerns Assessment Noted Time PHQ-9 Depression Total Score: 6 02/06/20 1:04 PM EDT documented as of this encounter Care Teams Plant Wrapper Relationship Specialty Start Date End Date Emani Ford MD [address] [place] [id number] PCP - General Internal Medicine 06/26/24 documented as of this encounter
--- OUTSIDE RECORDS SUMMARY | 2025-04-21 20:47 | XMS_ITS | Clinical Summary ---
Author Organization [employer] Address [address] [facility] [address] [place] [address] Care Team Providers Care Cattle Sprayer Name Role Phone Emani Ford MD Primary [...] 2 times daily. 60 tablet 2 5 Active hydrOXYzine HCl (Atarax) 25 MG tabletIndications [...] individual therapy/telehealth sessions and medication management with [facility] provider, Lazaro Medley. clinician will provide follow-up BE and assess sxs and services. Pt will practice coping strategies discussed during session at home. Encounters * This document contains information received from the source organization and may not represent a complete record from that organization. Date Type Department Care Team Description 04/17/2025 Telephone [facility] [address] [place] [address] Emani Ford MD Referral 02/21/2025 Results Follow-Up [facility] MED [facility] PEDS [address] [place] [address] Emani Ford MD T-SPOT .TB 02/17/2025 Telephone [facility] MEDIC[facility] [address] [facility] [place] [address] Emani Ford MD TB Test 02/10/2025 3:15 PM EDT Telemedicine [facility] MED [facility] PEDS [address] [place], [place] [phone] Emani Ford MD Anxiety (Primary Dx); Mild intermittent asthma without complication; Claustrophobia 02/10/2025 Travel 01/30/2025 Travel 01/20/2025 Telephone [facility] MED [facility] PEDS [address] [place] [address] Emani Ford MD No Show from Last 3 Months Family History Medical [...] 12/27/2024 3:38 PM EDT Plan of Treatment Upcoming Encounters Date Type Department Care Team (Late st Contact Info) Description 04/23/2025 10:00 AM EST Office Visit [facility] MEDICINE [address] [place], [place] [phone] Jodee Navarro CNM [address] [place] [address] Health Maintenance Due Date Last Done Comments [...] AM EDT) T Spot TB Negative Negative [facility] Comment:A negative test resu lt does [...] as aquantitative test. TS PANEL A 0 [facility] TS PANEL B 0 [facility] Negative Control Passed [facility] Positive Control Passed [facility] Comment:For additional infor andrew, please refer tohttp://education.[employer]/faq/JZN646(This link is being provided for informational/educational purposes only.)THIS TEST WAS PERFORMED AT:[id number] [place] [address]GRZPBXRAUGUSTIN CRAIG MD,PHD 02/18/2025 9:04 AM EDT 02/18/2025 1:47 PM EDT us Emani Ford MD LAB BLOOD ORDERABLES Final Result [facility] [address] [place] [address] [phone] * HM PAP/HPV (12/16/2021) Pap Smear [...] of detection of this assay. The [employer] Second Press Operator HIV Ag/Ab Combo assay result and supplemental assay results should be interpreted in conjunction with the patient's clinical presentation, history and other laboratory results. If the results are inconsistent with clinical evidence, additional testing is suggested to confirm the result. 11/26/2021 7:50 AM EDT us Catherine Izaguirre HISTORICAL/NON ORDERABLE LABS Fi nal Result [facility] [address] from Last 3 Months or Most Recently Relevant to Health Maintenance Insurance * Guarantor: Trinidad Horn Account Type Relation to Patient Date of Phone Billing Address Personal/Family Self 2000 [address] [facility] [address] [place] [address] [facility] [place] [id number] Care Teams Cattle Sprayer Relationship Specialty Start Date End Date Emani Ford MD [address] [place] [phone] PCP - General Internal Medicine 06/26/24
== END 2025-04-21 15:20 | disposition home or self-care (01) ==
LOC: HO.HWSM 14:25
PROVIDERS: PCP Internal Medicine; Visit Provider Advanced Practice Midwife
DX: Z30.09 Encounter for other general counseling and advice on contraception (principal); Z97.5 Presence of (intrauterine) contraceptive device
CPT/HCPCS: 11982; 99213

== ENCOUNTER → 2025-04-21 14:25 | Outpatient (BNVA) | payer MEDICAID, SELFPAY | PROVIDERS: PCP Internal Medicine; Visit Provider Advanced Practice Midwife | DX: Z30.432 Encounter for removal of intrauterine contraceptive device (principal); Z30.09 Encounter for other general counseling and advice on contraception | CPT/HCPCS: 11982; 99212 ==